=== PATIENT | male | born 1940 | race Caucasian/White ===

== ENCOUNTER 2016-12-01 08:10 | Emergency (ER) | payer MEDICARE, OTHER ==
[2016-12-01 08:21] VITALS: BP 134/67
[2016-12-01] MEDS ORDERED: Ipratropium 0.5MG/2.5ML NEB* 0.5 MG/2.5 ML NEB.SOLN INH ONE (08:49)
[2016-12-01] MEDS ORDERED: Albuterol 2.5 MG/3 ML NEB.SOL* (0.083%) INH ONE (08:49)
--- NOTE | 2016-12-01 08:49 | UC ---
Respiratory Complaint HPI - HPI Summary HPI Summary: 76 YO MALE WITH COUGH X 3 DAYS KEEPING HIM UP AT NIGHT FELT FEVERISH THIS AM NO CP OR SOB - History of Current Complaint Chief Complaint: UCRespiratory Stated Complaint: COUGH,CHEST CONGESTION Time Seen by Provider: 12/01/16 08:41 Hx Obtained From: Patient Onset/Duration: Gradual Onset, Lasting Days Timing: Constant Severity Initially: Mild Severity Currently: Moderate Pain Intensity: 3 Pain Scale Used: 0-10 Numeric Character: Cough: Nonproductive Aggravating Factors: Deep Breaths, Recumbent Position Alleviating Factors: Nothing - HAS USED INHALERS IN PAST Associated Signs And Symptoms: Positive: Fever - ? - Allergies/Home Medications Allergies/Adverse Reactions: Allergies Allergy/AdvReac Type Severity Reaction Status Date / Time No Known Allergies Allergy Verified 12/01/16 08:21 Home Medications: Home Medications Inhaler 1 - 2 puff INH SEE INSTRUCTIONS PRN 12/01/16 [History Confirmed ] PMH/Surg Hx/FS Hx/Imm Hx Cardiovascular History: Cardiac Disease, Hypertension Respiratory History: COPD - Surgical History Surgical History: Yes Surgery Procedure, Year, and Place: appy - Family History Known Family History: Positive: Hypertension - Social History Alcohol Use: Daily Alcohol Amount: 2 beers daily Substance Use Type: None Smoking Status (MU): Heavy Every Day Tobacco Smoker Type: Cigars Amount Used/How Often: 3-4 cigars Length of Time of Smoking/Using Tobacco: 40+ yrs Review of Systems Constitutional: Fever - [place] Skin: Negative Eyes: Negative ENT: Negative Respiratory: Cough Cardiovascular: Negative Gastrointestinal: Negative Genitourinary: Negative Motor: Negative Neurovascular: Negative Musculoskeletal: Negative Neurological: Negative Psychological: Negative All Other Systems Reviewed And Are Negative: Yes Physical Exam Triage Information Reviewed: Yes Appearance: Well-Appearing, No Pain Distress, Well-Nourished Vital Signs: Initial Vital Signs Temp 98.1 F 12/01/16 08:14 Pulse 64 12/01/16 08:14 Resp 24 12/01/16 08:14 BP 134/67 12/01/16 08:14 Pulse Ox 98 12/01/16 08:14 Vital Signs Reviewed: Yes Eyes: Positive: Conjunctiva Clear ENT: Positive: Hearing grossly normal. Negative: Nasal congestion, Nasal drainage, Trismus, Muffled/hoarse voice Neck: Positive: Supple, Nontender Respiratory: Positive: No respiratory distress, No accessory muscle use, Wheezing - WITH FORCED EXPIRATION Cardiovascular: Positive: RRR, No Murmur Musculoskeletal: Positive: ROM Intact, No Edema Neurological: Positive: Alert Psychological Exam: Normal Skin Exam: Normal UC Diagnostic Evaluation - Laboratory O2 Sat by Pulse Oximetry: 98 - NORMAL/NOT HYPOXIC - Radiology Xray Interpretation: No Acute Changes Radiology Interpretation Completed By: Radiologist Re-Evaluation - Re-Evaluation First Eval Re-Evaluation Time: 09:25 Change: Improved Comment: lungs clear....feels better Respiratory Course/Dx - Differential Dx/Diagnosis Provider Diagnoses: acute bronchitis Discharge - Discharge Plan Condition: Stable Disposition: HOME Prescriptions: Albuterol 2.5MG/3ML (0.083%)* [Ventolin 2.5 MG/3 ML NEB.NAVEEN*] 2.5 mg INH QID PRN #1 neb.naveen PRN Reason: Wheezing Amoxicillin PO (*) [Amoxicillin 875 MG (*)] 875 mg PO BID #14 tab Prednisone [Deltasone] 20 mg PO DAILY #5 tab Patient Education Materials: Acute Bronchitis (ED) Referrals: Ana Engel PA [Primary Care Provider] - 6 Days (if not better) Additional Instructions: use nebulizer 4x day for one week recheck for new or worsening symptoms
--- NOTE | 2016-12-01 09:02 | RAD ---
HISTORY: Cough COMPARISONS: December 27, 2013 VIEWS: 4: Frontal dual-energy and lateral views of the chest. FINDINGS: CARDIOMEDIASTINAL SILHOUETTE: The cardiomediastinal silhouette is normal. MARTIN: The martin are normal. PLEURA: The costophrenic angles are sharp. No pleural abnormalities are noted. LUNG PARENCHYMA: There is hyperinflation with flattening of the diaphragm and expansion of the AP diameter of the chest. ABDOMEN: The upper abdomen is clear. There is no subphrenic gas. BONES AND SOFT TISSUES: Degenerative changes are noted along the spine. OTHER: None. IMPRESSION: HYPERINFLATION, CONSISTENT WITH COPD. NO ACTIVE CARDIOPULMONARY DISEASE.
== END 2016-12-01 09:36 | disposition home or self-care (01) ==
LOC: UCCORT 08:10
DX: J20.9 Acute bronchitis, unspecified (principal); J44.9 Chronic obstructive pulmonary disease, unspecified; I10 Essential (primary) hypertension; F17.200 Nicotine dependence, unspecified, uncomplicated
CPT/HCPCS: 71020; 99212; G0463; J7644

== ENCOUNTER 2017-05-03 10:31 | Day surgery (SDC) | payer MEDICARE, OTHER ==
[~2017-05-03 10:31] MED LIST: Buffered Lidocaine 0.9% SYRIN* 5 ML/SYR SYRINGE INTRADERM ONE; Dexamethasone IV* 4 MG/ML 1 ML (4 MG) IV SLOW PU ONE; Famotidine IV* 10 MG/ML 2 ML (20 mg) IV ONE
[2017-05-03] MEDS ORDERED: ceFAZolin 2 GM PREMIX (*) 2 GM/50 ML BAG IVPB ONE (10:57)
[2017-05-03] MEDS ORDERED: Famotidine IV* 10 MG/ML 2 ML (20 mg) ONE (10:57)
[2017-05-03] MEDS ORDERED: Dexamethasone IV* 4 MG/ML 1 ML (4 MG) ONE (10:57)
[2017-05-03] MEDS ORDERED: Buffered Lidocaine 0.9% SYRIN* 5 ML/SYR SYRINGE ONE (10:57)
[2017-05-03] MEDS ORDERED: Levalbuterol 1.25MG/0.5ML NEB ONE (11:11)
[2017-05-03] MEDS ORDERED: Metoprolol Tartrate TAB* 100 MG TAB PO ONE (11:15)
[2017-05-03] MEDS ORDERED: Levalbuterol 1.25MG/0.5ML NEB INH ONE (12:00)
[2017-05-03] MEDS ORDERED: Bupivacaine 0.5% SDV PF* 10-30ML VIAL ONE ×3 (12:29→12:53)
[2017-05-03] MEDS ORDERED: Lidocaine 2% PF * 5 ML VIAL ONE (13:16)
[2017-05-03] MEDS ORDERED: Propofol* 10 MG/ML 20 ML BTL IV PUSH ONE (13:16)
[2017-05-03] MEDS ORDERED: Lidocaine 2% PF* 10 ML AMP ONE (13:33)
[2017-05-03 14:22] VITALS: BP 160/75
--- NOTE | 2017-05-04 13:34 | OP ---
DATE OF OPERATION: 05/03/17 - SDS DATE OF : 40 SURGEON: Benito Conner MD ANESTHESIOLOGIST: Speedy Pichardo MD ANESTHESIA: MAC PRE-OPERATIVE DIAGNOSES: 1. Necrotic toe. 2. Left forefoot with valgus flexion deformity. POST-OPERATIVE DIAGNOSES: 1. Necrotic toe. 2. Left forefoot with valgus flexion deformity. OPERATIVE PROCEDURE: PIP disarticulation of the 2nd toe. DESCRIPTION OF PROCEDURE: The patient was taken to the operating room where ankle Esmarch was performed. We placed 2% lidocaine around the metatarsal. Transverse elliptical incision was made at the PIP level, slightly distal, and we disarticulated, the PIP joint and then we are able to control hemostasis and closed dorsal to plantar with a couple of 3-0 Vicryl suture subcu and interrupted 3-0 nylon for the skin itself. We also percutaneously released the extensor tendon proximal to the MTP level through a dorsal 5-mm incision. This helped the contracture of the toe. The patient had generalized clawing noted. We then placed a compression dressing on the forefoot and an Manolo wrap. [id number]/[facility] #: [id number] [facility]
== END 2017-05-03 14:38 | disposition home or self-care (01) ==
LOC: OR 10:31
PROVIDERS: ATTEND Orthopaedic Surgery
DX: M86.672 Other chronic osteomyelitis, left ankle and foot (principal); M21.072 Valgus deformity, not elsewhere classified, left ankle; Z72.0 Tobacco use; I10 Essential (primary) hypertension; E78.5 Hyperlipidemia, unspecified; J44.9 Chronic obstructive pulmonary disease, unspecified
CPT/HCPCS: 88305; 88311; A9270-GY; J0690; J1100; J2001; J2704

== ENCOUNTER 2018-02-27 16:29 | Emergency (ER) | payer MEDICARE, OTHER ==
--- OUTSIDE RECORDS SUMMARY | 2018-02-27 16:42 | XMS REPORT ---
:1940 External Reference #:[id number] Author Organization [facility] 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 Ann Valdovinos MD Primary Care Physician Unavailable Payers Type Date Identification Numbers Payment Provider Subscriber Medicare Primary Policy Number: [id number] Medicare Benito Lu PayID: [id number] [address] [place] [address] Medicare Primary Effective: 2005 Policy Number: Medicare Benito Lu [id number] Expires: 2017 PayID: [id number] [address] [place] [address] Commercial Policy Number: [id number] for Life WPS Benito Lu PayID: [id number] [address] [place] [address] Problems Date Description Provider Status Onset: 02/08/2012 Coronary arteriosclerosis Delmar Quinn M.D., [facility] Active Note: AL 2003; holter WNL 2003 Onset: 02/08/2012 Mixed hyperlipidemia Delmar Quinn M.D., [facility] Active Note: June 2016 LDL 52 HDL 53 Onset: 02/08/2012 Aortic aneurysm Delmar Quinn M.D., [facility] Active Note: 3.9 cm Jan 2014; 4 cm (medium) June 2016 (next June 2017)- obtain an annual ultrasound study for aneurysms <4.5 cm and annual or more frequent intervals (eg, every six months) for larger aneurysms depending upon the characteristics of the aneurysm (eg, expansion rate). Onset: 02/22/2012 Benign essential hypertension Comfort Dumont, MARIBEL, Active [employer] Onset: 11/22/2014 Gilbert's syndrome Shar Olson MD Active Onset: 11/22/2014 Paroxysmal vertigo Shar Olson MD Active Onset: 11/22/2014 Tubular adenoma of colon Shar Olson MD Active Note: 2011; colo to cecum - 2014 Onset: 11/22/2014 Actinic keratosis Shar Olson MD Active Onset: 11/22/2014 Impotence Shar Olson MD Active Onset: 11/22/2014 Benign prostatic hyperplasia Shar Olson MD Active Onset: 11/22/2014 Rotator cuff syndrome Shar Olson MD Active Note: rupture; L shouder acromioplasty; R 2015 Onset: 11/22/2014 Bladder muscle dysfunction - overactive Shar Olson MD Active Onset: 11/22/2014 Gastroesophageal reflux disease Shar Olson MD Active Note: upper to D3 2013 Onset: 11/22/2014 Arthralgia of the lower leg Shar Olson MD Active Onset: 11/22/2014 Essential hypertension Shar Olson MD Active Onset: 11/22/2014 Benign neoplasm of colon Shar Olson MD Active Onset: 11/22/2014 Orthostatic hypotension Shar Olson MD Active Onset: 06/20/2015 Adult health examination Ana Engel PA-C Active Note: Next Td June 2016 eGFR 57 Cr 1.3 Onset: 08/13/2015 Dupuytren's contracture Ana Engel PA-C Active Note: R 4th digit Onset: 07/02/2016 Simple renal cyst Ana Engel PA-C Active Note: B/L US 2016 Onset: 08/05/2016 Chronic obstructive lung disease Ana Engel PA-C Active Note: FEV/FEV .June Onset: 05/19/2017 Tobacco user Ann Valdovinos MD Active Onset: 05/19/2017 Hypermature cataract Ann Valdovinos MD Active Onset: 05/19/2017 Immunization Ann Valdovinos MD Active Onset: 08/09/2017 Preoperative cardiovascular Delmar Quinn Active examination MDilcia, [facility] Onset: 08/09/2017 Electrocardiogram abnormal Delmar Quinn Active Ida, [facility] Onset: 08/09/2017 Hyperlipidemia Delmar Quinn Active M.D., [facility] Family History Date Family Member(s) Problem(s) Comments Father CAD : (age 62 Years) Father due to [place] Onset: (age 70 Years) First Brother Colon Cancer Second Brother Prostate Cancer Third Brother Prostate Cancer Social History Type Date Description Comments Marital Status Lives With Home Environment Lives With spouse Diet Patient follows no dietary restrictions 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 Cigarette Use Pack Years - 25 Cigars Current Cigar Smoker 6 Daily ETOH Use Consumes 4 beers per day Smoking Patient is a current smoker, smokes every 6 cigars a day day Recreational Drug Use Denies Drug Use Daily Caffeine Consumes on average 2 cups of regular coffee per day Allergies, Adverse Reactions, Alerts Date Description Reaction Status Severity Comments 05/19/2017 NKDA active 02/03/2012 NKDA inactive 11/22/2014 Vesicare inactive 11/22/2014 NKDA inactive Medications Medication Date Status Form Strength Qnty SIG Indications Ordering Provider Amlodipine 05/19/ Active Tablets 5mg 90tab 1 by mouth I10 Aruna, Besylate 2018 s every day MD Ann Metoprolol 08/05/ Active Tablets ER 100mg 90tab 1 By Mouth I10 Aruna, Succinate ER 2016 24HR s Every Day MD Ann Micardis 10/08/ Active Tablets 80mg 90tab 1 tab by I10 Aruna, 2016 s mouth every MD Ann day Lipitor / Active Tablets 80mg 90tab 1 by mouth Gagen, 0000 s every night Adalgisa iyer MS, [employer], CNM Aspirin Ec / Active Tablets DR 81mg 60tab 1 po qd Unknown 0000 s Garlic / Active 500mg 1 daily Unknown 0000 Spiriva 08/05/ Hx Aerosol 2.5mcg/Ac 12gm inhale 2 J44.9 Wasserman, Respimat 2017 t puffs (5 Zhao, mcg) by Ida mouth daily Metoprolol 06/23/ Hx Tablets ER 50mg 90tab 1 by mouth I10 Wasserman, Succinate ER 2017 - 24HR s every day Zhao, 08/05/ M.D. 2017 Proair HFA 06/23/ Hx Aerosol 108(90Bas 3unit 2 R06.00 Lux, 2017 e) s inhalations Zhao, mcg/Act every 4 M.D. hours as needed Ibuprofen 08/19/ Hx Capsules 200mg 2 po qam prn Gómez 2016 - eTjas Moreno, 2015 Acetaminophen 08/19/ Hx Tablets 500mg 360ta 2 by mouth Gómez, Extra Strength 2015 bs three times Tejas Moreno, a day DO Metoprolol 08/19/ Hx Tablets 25mg 180ta 1 by mouth Gómez Tartrate 2015 - bs twice a day Tejas Moreno, 2016 Telmisartan 08/19/ Hx Tablets 40mg 30tab 1 by mouth I10 Gómez, 2015 - s every day Tejas Moreno, 2015 Golytely 01/04/ Hx Solution 227.1gm 1bott drink 1 cup Wesley 2014 - Rec le every 10'; Shar, 06/19/ drink half 2015 of jug the evening before the procedure, the other half the morning of the procedure Celecoxib 11/22/ Hx Capsules 200mg 30cap PO daily 719.46 Wesley 2014 - s Shar, 06/19/ MD 2016 Acetaminophen 11/22/ Hx Tablets 500mg 180ta 1 g PO Q 6 h 719.46 Wesley, Extra Strength 2014 - bs prn pain, Shar, 06/19/ MDD 3 g 2015 Midodrine HCL 02/07/ Hx Tablets 10mg 60tab 1 by mouth 780.4 Cheyenne 2011 - s twice a day , Delmar 02/21/ MIda Modi, 2011 FACC Vesicare / Hx Tablets 5mg 30tab 1 po qd Unknown - s 2014 Diltiazem CD / Hx Caps ER 180mg 90cap 1 po qd Unknown 0000 - 24HR s 2011 Meclizine HCL / Hx Tablets 25mg 90tab 1 po qid prn Unknown 0000 - s 2015 Calcium / Hx Chewtabs 500mg as needed Unknown Carbonate 0000 - Antacid 2015 Metoprolol / Hx Tablets 50mg 180ta 1 by mouth Vatra, Tartrate 0000 - bs twice a day Shar, 2015 Polyethylene / Hx Packet [id number] take one Unknown Glycol 3350 0000 - packet by 11/21/ mouth twice 2015 a day as needed Prednisone / Hx Tablets 20mg 1 by mouth Unknown 0000 - every day 2015 Medications Administered in Office Medication Date Status Form Strength Qnty SIG Indications Ordering Provider Administration 12/28/ Administered Injection Wesley, Of Flu 2007 MD Shar Administration 02/18/ Administered Injection Wesley, Of Flu 2006 MD Shar Immunizations CPT Code Status Date Vaccine Lot # [id number] Given 01/19/2018 Influenza High Dose [id number] 40727 Given 05/19/2017 Influenza High Dose [id number] 27908 Given 03/14/2017 Influenza Virus Vaccine Intranasal 23564 Given 01/31/2016 Influenza Virus Vaccine Split Virus Use For [id number] Individual 3Yr Older 17924 Given 10/09/2015 Td Preservative Free For Use In Individuals 7 Yrs [id number] Or Older 08273 Given 06/20/2015 Pneumococcal Conjugate Vaccine 13 Valent For [id number] Intramuscular Use 68766 Given 06/20/2015 Influenza High Dose [id number] 50356 Given 12/30/2012 flu vaccination 90641 Given 07/01/2012 Pneumovax Injection 40557 Given 12/29/2011 flu vaccination 90675 Given 01/30/2011 flu vaccination 58061 Given 12/29/2007 flu vaccination 85763 Given 02/18/2007 flu vaccination 35145 Given 09/17/2005 Tetnus Injection 02975 Given 04/19/2001 Pneumovax Injection 41214 Given 04/19/1995 Tetnus Injection Vital Signs Date Vital Result Comment 02/08/2018 BP Systolic Sitting Left Arm 120 mmHg BP Diastolic Sitting Left Arm 65 mmHg Heart Rate 52 /min Respiratory Rate 18 /min Height 73 inches 6'1" Weight 195.00 lb BMI (Body Mass Index) 25.7 kg/m2 BSA (Body Surface Area) 2.13 m2 Nallen body weight in kilograms 83 O2 % BldC Oximetry 99 % 01/19/2018 BP Systolic Sitting Right Arm 144 mmHg Quinn 110/69 BP Diastolic Sitting Right Arm 70 mmHg Quinn 110/69 Body Temperature 96.9 F Heart Rate 56 /min Respiratory Rate 2 /min Height 73 inches 6'1" Weight 191.00 lb BMI (Body Mass Index) 25.2 kg/m2 BSA (Body Surface Area) 2.11 m2 Nallen body weight in kilograms 83 O2 % BldC Oximetry 98 % 10/07/2017 BP Systolic Sitting Right Arm 126 mmHg BP Diastolic Sitting Right Arm 72 mmHg Heart Rate 54 /min Respiratory Rate 18 /min Height 73 inches 6'1" Weight 186.00 lb BMI (Body Mass Index) 24.5 kg/m2 BSA (Body Surface Area) 2.09 m2 Nallen body weight in kilograms 83 O2 % BldC Oximetry 97 % 08/31/2017 BP Systolic Sitting Right Arm 127 mmHg BP Diastolic Sitting Right Arm 74 mmHg Body Temperature 98.3 F Heart Rate 69 /min Respiratory Rate 20 /min Height 73 inches 6'1" Weight 190.00 lb BMI (Body Mass Index) 25.1 kg/m2 BSA (Body Surface Area) 2.11 m2 Nallen body weight in kilograms 83 O2 % BldC Oximetry 95 % 08/09/2017 BP Systolic Sitting Left Arm 110 mmHg BP Diastolic Sitting Left Arm 68 mmHg Heart Rate 82 /min Respiratory Rate 18 /min Height 73 inches 6'1" Weight 197.00 lb BMI (Body Mass Index) 26.0 kg/m2 BSA (Body Surface Area) 2.14 m2 Nallen body weight in kilograms 83 05/19/2017 BP Systolic Sitting Right Arm 175 mmHg Quinn 146/84 BP Diastolic Sitting Right Arm 80 mmHg Quinn 146/84 Body Temperature 96.5 F Heart Rate 52 /min Respiratory Rate 18 /min Height 73 inches 6'1" Weight 193.00 lb BMI (Body Mass Index) 25.5 kg/m2 BSA (Body Surface Area) 2.12 m2 Nallen body weight in kilograms 83 09/17/2016 BP Systolic Sitting Right Arm 120 mmHg BP Diastolic Sitting Right Arm 80 mmHg Height 73 inches 6'1" Weight 195.00 lb BMI (Body Mass Index) 25.7 kg/m2 BSA (Body Surface Area) 2.13 m2 Nallen body weight in kilograms 83 08/05/2016 BP Systolic 156 mmHg BP Diastolic 81 mmHg Heart Rate 52 /min Respiratory Rate 20 /min Height 73 inches 6'1" Weight 195.00 lb BMI (Body Mass Index) 25.7 kg/m2 BSA (Body Surface Area) 2.13 m2 O2 % BldC Oximetry 96 % 06/23/2016 BP Systolic 152 mmHg BP Diastolic 83 mmHg Heart Rate 60 /min Height 73 inches 6'1" Weight 201.00 lb BMI (Body Mass Index) 26.5 kg/m2 BSA (Body Surface Area) 2.16 m2 12/25/2015 BP Systolic 128 mmHg BP Diastolic 75 mmHg Heart Rate 54 /min Height 73 inches 6'1" Weight 193.00 lb BMI (Body Mass Index) 25.5 kg/m2 BSA (Body Surface Area) 2.12 m2 10/09/2015 BP Systolic 144 mmHg BP Diastolic 76 mmHg Heart Rate 71 /min Respiratory Rate 24 /min Height 73 inches 6'1" Weight 193.00 lb BMI (Body Mass Index) 25.5 kg/m2 BSA (Body Surface Area) 2.12 m2 08/20/2015 BP Systolic 162 mmHg BP Diastolic 77 mmHg Heart Rate 48 /min Height 73 inches 6'1" Weight 195.00 lb BMI (Body Mass Index) 25.7 kg/m2 BSA (Body Surface Area) 2.13 m2 06/20/2015 BP Systolic 147 mmHg BP Diastolic 76 mmHg Heart Rate 50 /min Height 73 inches 6'1" Weight 195.00 lb BMI (Body Mass Index) 25.7 kg/m2 BSA (Body Surface Area) 2.13 m2 11/22/2014 BP Systolic Sitting Left Arm 138 mmHg BP Diastolic Sitting Left Arm 76 mmHg Heart Rate 76 /min Respiratory Rate 20 /min Height 73 inches 6'1" Weight 197.00 lb BMI (Body Mass Index) 26.0 kg/m2 BSA (Body Surface Area) 2.14 m2 08/29/2012 BP Systolic Sitting Right Arm 166 mmHg BP Diastolic Sitting Right Arm 74 mmHg Heart Rate 52 /min Regular Respiratory Rate 16 /min Height 73 inches 6'1" Weight 205.00 lb BMI (Body Mass Index) 27.0 kg/m2 BSA (Body Surface Area) 2.17 m2 BP Systolic Recheck 132 mmHg BP Diastolic Recheck 70 mmHg 02/22/2012 BP Systolic Sitting Left Arm 144 mmHg BP Diastolic Sitting Left Arm 82 mmHg Heart Rate 64 /min Respiratory Rate 14 /min Height 73 inches 6'1" Weight 195.00 lb BMI (Body Mass Index) 25.7 kg/m2 02/08/2012 BP Systolic Sitting Right Arm 140 mmHg BP Diastolic Sitting Right Arm 86 mmHg Heart Rate 59 /min Respiratory Rate 16 /min Height 73 inches 6'1" Weight 198.00 lb BMI (Body Mass Index) 26.1 kg/m2 Results Test Date Test Result H/L Range Note Glycohemoglobin A1c 01/28/2018 Glycohemoglobin (A1c) 5.6 % 4.2-6.3 1, 2 eAG 114 mg/dL 1 Comprehensive Metabolic Panel 01/28/2018 Glucose 100 mg/dL 74-106 1 BUN 15 mg/dL 7-18 1 Creatinine 1.3 mg/dL 0.6-1.3 1 Glom Filtration Rate, Estimate 57 mL/min >60 1 If >60 mL/min >60 1, 3 BUN/Creat 11.5 ratio 1 Sodium 139 mmol/L 136-145 1 Potassium 4.5 mmol/L 3.5-5.1 1 Chloride 104 mmol/L 98-107 1 Carbon Dioxide 29 mmol/L 21-32 1 Anion Gap 6 mEq/L Low 8-16 1 Calcium 8.5 mg/dL 8.5-10.1 1 Total Protein 7.5 g/dL 6.4-8.2 1 Albumin 3.5 g/dL 3.4-5.0 1 Globulin 4.0 g/dL 1.9-4.3 1 Alb/Glob 0.9 ratio 1 Bilirubin,Total 1.6 mg/dL High 0.2-1.0 1 Sgot/Ast 22 U/L 15-37 1 SGPT/Alt 34 U/L 12-78 1 Alkaline Phosphatase 107 U/L 45-117 1 CBC W/Automated Diff 01/28/2018 White Blood Count 6.1 K/uL 3.4-10.5 1 Red Blood Count 4.58 M/uL 4.20-5.80 1 Hemoglobin 15.2 gm/dL 12.8-17.0 1 Hematocrit 45.8 % 38.0-48.0 1 Mean Cell Volume 100.0 fl High 80.0-96.0 1 Mean Corpuscular HGB 33.2 pg High 27.0-33.0 1 Mean Corpuscular HGB Conc 33.2 g/dL 31.7-36.0 1 Platelet Count 156 K/uL 155-360 1 Red Cell Distri Width SD 48.6 fl 36-51 1 Red Cell Distri Width %CV 13.5 % 11.6-15.8 1 Mean Platelet Volume 12.1 fL High 6.6-10.6 1 Neut% 53.1 % 33.0-73.0 1 Lymph % 29.3 % 20.0-42.0 1 Crisp % 12.9 % High 0.0-10.0 1 Eo% 4.4 % 0.0-6.6 1 Bas% 0.3 % 0.0-1.1 1 Neut# 3.22 K/uL 1.8-7.0 1 Lymph # 1.78 K/uL 1.0-4.0 1 Crisp # 0.78 K/uL 0.0-0.8 1 Eos # 0.27 K/uL 0.0-0.5 1 Baso # 0.02 K/uL 0.0-0.1 1 LDL Cholesterol Profile 01/28/2018 Cholesterol 93 mg/dL <200 1, 4 Triglycerides 64 mg/dL <150 1, 5 HDL Cholesterol 46 mg/dL >40 1, 6 LDL-Cholesterol 34 mg/dL < 100 1, 7 Laboratory test 01/28/2018 Vitamin D,25-Hydroxy 23.1 ng/mL Low 30.0-100.0 1, 8 finding Comprehensive 08/31/2017 Glucose 112 mg/dL High 74-106 9 Metabolic Panel BUN 18 mg/dL 7-18 9 Creatinine 1.3 mg/dL 0.6-1.3 9 Glom Filtration Rate, Estimate 57 mL/min >60 9 If >60 mL/min >60 9, 10 BUN/Creat 13.8 ratio 9 Sodium 138 mmol/L 136-145 9 Potassium 4.0 mmol/L 3.5-5.1 9 Chloride 105 mmol/L 98-107 9 Carbon Dioxide 25 mmol/L 21-32 9 Anion Gap 8 mEq/L 8-16 9 Calcium 8.7 mg/dL 8.5-10.1 9 Total Protein 7.7 g/dL 6.4-8.2 9 Albumin 3.3 g/dL Low 3.4-5.0 9 Globulin 4.4 g/dL High 1.9-4.3 9 Alb/Glob 0.8 ratio 9 Bilirubin,Total 1.9 mg/dL High 0.2-1.0 9 Sgot/Ast 32 U/L 15-37 9 SGPT/Alt 35 U/L 12-78 9 Alkaline Phosphatase 97 U/L 45-117 9 CBS W/Automated Diff 08/31/2017 White Blood Count 6.6 K/uL 3.4-10.5 9 Red Blood Count 4.46 M/uL 4.20-5.80 9 Hemoglobin 14.8 gm/dL 12.8-17.0 9 Hematocrit 43.8 % 38.0-48.0 9 Mean Cell Volume 98.2 fl High 80.0-96.0 9 Mean Corpuscular HGB 33.2 pg High 27.0-33.0 9 Mean Corpuscular HGB Conc 33.8 g/dL 31.7-36.0 9 Platelet Count 177 K/uL 155-360 9 Red Cell Distri Width SD 46.3 fl 36-51 9 Red Cell Distri Width %CV 13.1 % 11.6-15.8 9 Mean Platelet Volume 11.9 fL High 6.6-10.6 9 Neut% 70.2 % 33.0-73.0 9 Lymph % 16.6 % Low 20.0-42.0 9 Crisp % 10.0 % 0.0-10.0 9 Eo% 2.9 % 0.0-6.6 9 Bas% 0.3 % 0.0-1.1 9 Neut# 4.66 K/uL 1.8-7.0 9 Lymph # 1.10 K/uL 1.0-4.0 9 Crisp # 0.66 K/uL 0.0-0.8 9 Eos # 0.19 K/uL 0.0-0.5 9 Baso # 0.02 K/uL 0.0-0.1 9 LDL Cholesterol Profile 08/31/2017 Cholesterol 106 mg/dL <200 9, 11 Triglycerides 91 mg/dL <150 9, 12 HDL Cholesterol 42 mg/dL >40 9, 13 LDL-Cholesterol 46 mg/dL < 100 9, 14 Glycohemoglobin A1c 08/31/2017 Glycohemoglobin (A1c) 5.8 % 4.2-6.3 9, 15 eAG 120 mg/dL 9 Basic Metabolic Panel 08/27/2017 Anion Gap 9 mmol/L 7 - 16 BUN/Creatinine Ratio 12.5 Ratio 10.0 - 20.0 Calcium 8.4 mg/dL 8.4 - 10.2 Chloride 107 mmol/L 100 - 108 Co2 24 mmol/L 22 - 31 Creatinine 1.20 mg/dL 0.80 - 1.30 GFR MDRD Af Amer >60 >59 ml/min/1.73m2 GFR MDRD Non Af Amer 59 ml/min/1.73m2 Low >59 Glom Filt Rate, Est See Notes Glucose 116 mg/dL High 70 - 99 Potassium 4.5 mmol/L 3.6 - 5.2 Sodium 140 mmol/L 136 - 145 Urea nitrogen 15 mg/dL 7 - 24 CBC 08/27/2017 Hematocrit 40.0 % Low 41.0 - 53.0 Hemoglobin 13.9 g/dL 13.5 - 18.0 MCH 33.9 pg High 27.0 - 32.0 MCHC 34.8 g/dL 32.0 - 36.0 MCV 97.5 fL High 80.0 - 95.0 MPV 9.2 fL 7.1 - 10.7 Platelets 159 10*3/uL 150 - 450 RBC 4.10 10*6/uL Low 4.60 - 6.10 RDW 13.6 % 10.5 - 14.5 WBC 10.0 10*3/uL 4.1 - 11.0 Blood type, confirmatory 08/26/2017 Blood bank comment See Notes Patient Abo/Rh A Positive Poct glucose 08/26/2017 Glucose, Poc 96 mg/dL 70 - 99 Protime-Inr 08/12/2017 Inr 0.94 1 Protime 9.8 s 9.2 - 11.9 Comprehensive metabolic panel 08/12/2017 Alb/Glob ratio 1.0 Ratio Albumin 3.6 g/dL 3.2 - 4.5 Alkaline Phosphatase 110 U/L 45 - 117 Alt 27 U/L 12 - 78 Anion Gap 9 mmol/L 7 - 16 Ast 17 U/L 11 - 39 BUN/Creatinine Ratio 13.9 Ratio 10.0 - 20.0 Bilirubin, Total 1.3 mg/dL High 0.0 - 1.0 Calcium 8.8 mg/dL 8.4 - 10.2 Chloride 103 mmol/L 100 - 108 Co2 26 mmol/L 22 - 31 Creatinine 1.01 mg/dL 0.80 - 1.30 GFR MDRD Af Amer >60 >59 ml/min/1.73m2 GFR MDRD Non Af Amer >60 >59 ml/min/1.73m2 Globulin 3.6 g/dL 2.7 - 4.3 Glom Filt Rate, Est See Notes Glucose 81 mg/dL 70 - 99 Potassium 4.3 mmol/L 3.6 - 5.2 Protein, Total 7.2 g/dL 6.4 - 8.2 Sodium 138 mmol/L 136 - 145 Urea nitrogen 14 mg/dL 7 - 24 CBC 08/12/2017 Hematocrit 44.3 % 41.0 - 53.0 Hemoglobin 15.4 g/dL 13.5 - 18.0 MCH 34.5 pg High 27.0 - 32.0 MCHC 34.9 g/dL 32.0 - 36.0 MCV 98.9 fL High 80.0 - 95.0 MPV 9.8 fL 7.1 - 10.7 Platelets 203 10*3/uL 150 - 450 RBC 4.47 10*6/uL Low 4.60 - 6.10 RDW 13.7 % 10.5 - 14.5 WBC 6.9 10*3/uL 4.1 - 11.0 Type and screen 08/12/2017 Antibody Screen Negative Patient Abo/Rh A Positive Specimen Expiration Date 08/27/2017 Testing site Performed At [address] [place] [id number] Ua Routine 05/06/2017 Ua Bilirubin Negative Ua Blood Negative Ua Clarity Clear Ua Color Yellow Ua Glucose Negative Ua Ketones Negative Ua Leuko Negative Ua Nitrite Negative Ua PH 5.5 1 5.0-7.5 Ua Protein Negative Ua Specific [place] <=1.005 1.003-1.030 Ua Urobilinogen 0.2 E.U./dL 0.0-1.0 Comprehensive Metabolic Panel 03/19/2017 Glucose 113 mg/dL High 74-106 16 BUN 15 mg/dL 7-18 16 Creatinine 1.1 mg/dL 0.6-1.3 16 Glom Filtration Rate, Estimate >60 mL/min >60 16 If >60 mL/min >60 16, 17 BUN/Creat 13.6 ratio 16 Sodium 138 mmol/L 136-145 16 Potassium 4.4 mmol/L 3.5-5.1 16 Chloride 105 mmol/L 98-107 16 Carbon Dioxide 28 mmol/L 21-32 16 Anion Gap 5 mEq/L Low 8-16 16 Calcium 9.0 mg/dL 8.5-10.1 16 Total Protein 7.0 g/dL 6.4-8.2 16 Albumin 3.5 g/dL 3.4-5.0 16 Globulin 3.5 g/dL 1.9-4.3 16 Alb/Glob 1.0 ratio 16 Bilirubin,Total 1.4 mg/dL High 0.2-1.0 16 Sgot/Ast 15 U/L 15-37 16 SGPT/Alt 27 U/L 12-78 16 Alkaline Phosphatase 90 U/L 45-117 16 Comprehensive Metabolic Panel 09/16/2016 Glucose 113 mg/dL High 74-106 18 BUN 17 mg/dL 7-18 18 Creatinine 1.2 mg/dL 0.6-1.3 18 Glom Filtration Rate, Estimate >60 mL/min >60 18 If >60 mL/min >60 18, 19 BUN/Creat 14.1 ratio 18 Sodium 139 mmol/L 136-145 18 Potassium 4.5 mmol/L 3.5-5.1 18 Chloride 105 mmol/L 98-107 18 Carbon Dioxide 30 mmol/L 21-32 18 Anion Gap 4 mEq/L Low 8-16 18 Calcium 9.0 mg/dL 8.5-10.1 18 Total Protein 7.3 g/dL 6.4-8.2 18 Albumin 3.8 g/dL 3.4-5.0 18 Globulin 3.5 g/dL 1.9-4.3 18 Alb/Glob 1.1 ratio 18 Bilirubin,Total 1.7 mg/dL High 0.2-1.0 18 Sgot/Ast 20 U/L 15-37 18 SGPT/Alt 39 U/L 12-78 18 Alkaline Phosphatase 90 U/L 45-117 18 Comprehensive Metabolic Panel 06/20/2016 Glucose 109 mg/dL High 74-106 20 BUN 17 mg/dL 7-18 20 Creatinine 1.3 mg/dL 0.6-1.3 20 Glom Filtration Rate, Estimate 57 mL/min >60 20 If >60 mL/min >60 20, 21 BUN/Creat 13.0 ratio 20 Sodium 141 mmol/L 136-145 20 Potassium 4.7 mmol/L 3.5-5.1 20 Chloride 107 mmol/L 98-107 20 Carbon Dioxide 27 mmol/L 21-32 20 Anion Gap 7 mEq/L Low 8-16 20 Calcium 8.5 mg/dL 8.5-10.1 20 Total Protein 7.0 g/dL 6.4-8.2 20 Albumin 3.7 g/dL 3.4-5.0 20 Globulin 3.3 g/dL 1.9-4.3 20 Alb/Glob 1.1 ratio 20 Bilirubin,Total 0.9 mg/dL 0.2-1.0 20 Sgot/Ast 18 U/L 15-37 20 SGPT/Alt 40 U/L 12-78 20 Alkaline Phosphatase 92 U/L 45-117 20 LDL Cholesterol Profile 06/20/2016 Cholesterol 118 mg/dL <200 20, 22 Triglycerides 64 mg/dL <150 20, 23 HDL Cholesterol 53 mg/dL >40 20, 24 LDL-Cholesterol 52 mg/dL < 100 20, 25 Comprehensive Metabolic Panel 12/25/2015 Glucose 100 mg/dL 74-106 26 BUN 17 mg/dL 7-18 26 Creatinine 1.1 mg/dL 0.6-1.3 26 Glom Filtration Rate, Estimate >60 mL/min >60 26 If >60 mL/min >60 26, 27 BUN/Creat 15.4 ratio 26 Sodium 137 mmol/L 136-145 26 Potassium 4.7 mmol/L 3.5-5.1 26 Chloride 105 mmol/L 98-107 26 Carbon Dioxide 28 mmol/L 21-32 26 Anion Gap 4 mEq/L Low 8-16 26 Calcium 8.5 mg/dL 8.5-10.1 26 Total Protein 6.8 g/dL 6.4-8.2 26 Albumin 3.7 g/dL 3.4-5.0 26 Globulin 3.1 g/dL 1.9-4.3 26 Alb/Glob 1.2 ratio 26 Bilirubin,Total 2.5 mg/dL High 0.2-1.0 26 Sgot/Ast 18 U/L 15-37 26 SGPT/Alt 35 U/L 12-78 26 Alkaline Phosphatase 82 U/L 45-117 26 Is Patient Fasting? <Blank> 26 CBS W/Automated Diff 12/25/2015 White Blood Count 6.1 K/uL 3.4-10.5 26 Red Blood Count 4.45 M/uL 4.20-5.80 26 Hemoglobin 15.3 gm/dL 12.8-17.0 26 Hematocrit 45.2 % 38.0-48.0 26 Mean Cell Volume 101.6 fl High 80.0-96.0 26 Mean Corpuscular HGB 34.4 pg High 27.0-33.0 26 Mean Corpuscular HGB Conc 33.8 g/dL 31.7-36.0 26 Platelet Count 150 K/uL 150-400 26 Red Cell Distri Width SD 48.2 fl 36-51 26 Red Cell Distri Width %CV 13.2 % 11.6-15.8 26 Mean Platelet Volume 12.9 fL High 6.6-10.6 26 Neut% 63.9 % 33.0-73.0 26 Lymph % 24.5 % 17.0-56.0 26 Crisp % 8.5 % 0.0-10.0 26 Eo% 2.8 % 0.0-5.0 26 Bas% 0.3 % 0.1-1.0 26 Neut# 3.91 K/uL 1.8-7.0 26 Lymph # 1.50 K/uL Low 1.8-7.0 26 Crisp # 0.52 K/uL 0.0-0.8 26 Eos # 0.17 K/uL 0.0-0.5 26 Baso # 0.02 K/uL Low 0.1-0.2 26 Protime 12/25/2015 Protime 13.4 seconds 12.0-14.4 26 Inr 1.0 0.9-1.1 26, 28 Laboratory test 12/25/2015 Act Partial Thrombo 28.7 seconds 23.4-35.0 26 , 29 finding Time Magnesium 12/25/2015 Magnesium 2.2 mg/dL 1.8-2.4 26 Is Patient Fasting? <Blank> 26 Comprehensive Metabolic Panel 12/24/2015 Glucose 109 mg/dL High 74-106 30 BUN 21 mg/dL High 7-18 30 Creatinine 1.2 mg/dL 0.6-1.3 30 Glom Filtration Rate, Estimate >60 mL/min >60 30 If >60 mL/min >60 30, 31 BUN/Creat 17.5 ratio 30 Sodium 140 mmol/L 136-145 30 Potassium 4.4 mmol/L 3.5-5.1 30 Chloride 108 mmol/L High 98-107 30 Carbon Dioxide 27 mmol/L 21-32 30 Anion Gap 5 mEq/L Low 8-16 30 Calcium 8.6 mg/dL 8.5-10.1 30 Total Protein 6.7 g/dL 6.4-8.2 30 Albumin 3.6 g/dL 3.4-5.0 30 Globulin 3.1 g/dL 1.9-4.3 30 Alb/Glob 1.2 ratio 30 Bilirubin,Total 1.7 mg/dL High 0.2-1.0 30 Sgot/Ast 19 U/L 15-37 30 SGPT/Alt 34 U/L 12-78 30 Alkaline Phosphatase 78 U/L 45-117 30 @[facility] Id: [id number] 30 @[facility] Re #: [id number] 30 Is Patient Fasting? Fasting 30 Comprehensive Metabolic Panel 10/08/2015 Glucose 108 mg/dL High 74-106 BUN 18 mg/dL 7-18 Creatinine 1.1 mg/dL 0.6-1.3 Glom Filtration Rate, Estimate >60 mL/min >60 If >60 mL/min >60 32 BUN/Creat 16.3 ratio Sodium 139 mmol/L 136-145 Potassium 4.1 mmol/L 3.5-5.1 Chloride 105 mmol/L 98-107 Carbon Dioxide 29 mmol/L 21-32 Anion Gap 5 mEq/L Low 8-16 Calcium 8.8 mg/dL 8.5-10.1 Total Protein 7.1 g/dL 6.4-8.2 Albumin 3.8 g/dL 3.4-5.0 Globulin 3.3 g/dL 1.9-4.3 Alb/Glob 1.2 ratio Bilirubin,Total 1.5 mg/dL High 0.2-1.0 Sgot/Ast 22 U/L 15-37 SGPT/Alt 47 U/L 12-78 Alkaline Phosphatase 76 U/L 45-117 Comprehensive Metabolic Panel 08/15/2015 Glucose 103 mg/dL 74-106 BUN 21 mg/dL High 7-18 Creatinine 1.3 mg/dL 0.6-1.3 Glom Filtration Rate, Estimate 57 mL/min >60 If >60 mL/min >60 33 BUN/Creat 16.1 ratio Sodium 139 mmol/L 136-145 Potassium 4.4 mmol/L 3.5-5.1 Chloride 105 mmol/L 98-107 Carbon Dioxide 27 mmol/L 21-32 Anion Gap 7 mEq/L Low 8-16 Calcium 8.6 mg/dL 8.5-10.1 Total Protein 6.8 g/dL 6.4-8.2 Albumin 3.6 g/dL 3.4-5.0 Globulin 3.2 g/dL 1.9-4.3 Alb/Glob 1.1 ratio Bilirubin,Total 1.5 mg/dL High 0.2-1.0 Sgot/Ast 17 U/L 15-37 SGPT/Alt 38 U/L 12-78 Alkaline Phosphatase 81 U/L 45-117 LDL Cholesterol Profile 06/13/2015 Cholesterol 98 mg/dL <200 34 Triglycerides 75 mg/dL <150 35 HDL Cholesterol 42 mg/dL >40 36 LDL-Cholesterol 41 mg/dL < 100 37 Comprehensive Metabolic Panel 06/13/2015 Glucose 104 mg/dL 74-106 BUN 14 mg/dL 7-18 Creatinine 1.0 mg/dL 0.6-1.3 Glom Filtration Rate, Estimate >60 mL/min >60 If >60 mL/min >60 38 BUN/Creat 14.0 ratio Sodium 136 mmol/L 136-145 Potassium 4.1 mmol/L 3.5-5.1 Chloride 105 mmol/L 98-107 Carbon Dioxide 26 mmol/L 21-32 Anion Gap 5 mEq/L Low 8-16 Calcium 8.5 mg/dL 8.5-10.1 Total Protein 6.9 g/dL 6.4-8.2 Albumin 3.5 g/dL 3.4-5.0 Globulin 3.4 g/dL 1.9-4.3 Alb/Glob 1.0 ratio Bilirubin,Total 1.4 mg/dL High 0.2-1.0 Sgot/Ast 19 U/L 15-37 SGPT/Alt 37 U/L 12-78 Alkaline Phosphatase 81 U/L 45-117 Laboratory test finding 01/07/2015 Polyp Colon And/Or Rectum See Note 39 1 E78.5 I10 F17.200 2 Elevated levels of HbA1c suggest the need for more aggressive treatment of glycemia. The [place] [employer] recommends that a primary goal of therapy should be a HbA1c of <7% and that physicians should re-evaluate the treatment regimen in patients with HbA1c values consistently >8%. 3 Note: Persistent reduction for 3 months or more in an eGFR <60 mL/min/1.73 m2 defines CKD. Patients with eGFR values >/=60 mL/min/1.73 m2 may also have CKD if evidence of persistent proteinuria is present. The original MDRD equation for estimated GFR is not valid for patients less than 18 years of age. Additional information may be found at www.[email or web address]. 4 Reference Guidelines*: Desirable: ........... < 200 mg/dL Borderline High: ..... 200-239 mg/dL High: ................ >=240 mg/dL * The National Cholesterol Education Program (NCEP) 5 Reference Guidelines*: Normal: ............. < 150 mg/dL Borderline High: .... 150-199 mg/dL High: ............... 200-499 mg/dL Very High: .......... > 500 mg/dL * Source: National Cholesterol Education Program (NCEP) 6 Reference Guidelines*: Low HDL: ..... < 40 mg/dL Normal: ..... 40-60 mg/dL Desirable: ... > 60 mg/dL *The National Cholesterol Education Program(NCEP) 7 Reference Guidelines*: Optimal:........... <100 mg/dL Near Optimal....... 100-129 mg/dL Borderline High.... 130-159 mg/dL High............... 160-189 mg/dL Very High.......... >=190 mg/dL * Source: National Cholesterol Education Program (NCEP) 8 Vitamin D deficiency has been defined by the [place] [employer] and an Endocrine Society practice guideline as a level of serum 25-OH vitamin D less than 20 ng/mL (1,2). The Endocrine Society went on to further define vitamin D insufficiency as a level between 21 and 29 ng/mL (2). 1. IOM ([place] [employer]). 2010. Dietary reference intakes for calcium and D. [place]: The National Academies Press. 2. Romeo EDOUARD, Ivon HARRIS, Sherie GARCIA, et al. Evaluation, treatment, and prevention of vitamin D deficiency: an Endocrine Society clinical practice guideline. JCEM. 2010; 96(7):1911-30. Performed at: RN - [facility] [address] [id number] Farm Adviser: Emelina Randle MD, Phone: [phone] I10 I71.9 E78.5 I25.10 R73.9 10 Note: Persistent reduction for 3 months or more in an eGFR <60 mL/min/1.73 m2 defines CKD. Patients with eGFR values >/=60 mL/min/1.73 m2 may also have CKD if evidence of persistent proteinuria is present. The original MDRD equation for estimated GFR is not valid for patients less than 18 years of age. Additional information may be found at www.[email or web address]. 11 Reference Guidelines*: Desirable: ........... < 200 mg/dL Borderline High: ..... 200-239 mg/dL High: ................ >=240 mg/dL * The National Cholesterol Education Program (NCEP) 12 Reference Guidelines*: Normal: ............. < 150 mg/dL Borderline High: .... 150-199 mg/dL High: ............... 200-499 mg/dL Very High: .......... > 500 mg/dL * Source: National Cholesterol Education Program (NCEP) 13 Reference Guidelines*: Low HDL: ..... < 40 mg/dL Normal: ..... 40-60 mg/dL Desirable: ... > 60 mg/dL *The National Cholesterol Education Program(NCEP) 14 Reference Guidelines*: Optimal:........... <100 mg/dL Near Optimal....... 100-129 mg/dL Borderline High.... 130-159 mg/dL High............... 160-189 mg/dL Very High.......... >=190 mg/dL * Source: National Cholesterol Education Program (NCEP) 15 Elevated levels of HbA1c suggest the need for more aggressive treatment of glycemia. The [place] [employer] recommends that a primary goal of therapy should be a HbA1c of <7% and that physicians should re-evaluate the treatment regimen in patients with HbA1c values consistently >8%. 16 J44.9 17 Note: Persistent reduction for 3 months or more in an eGFR <60 mL/min/1.73 m2 defines CKD. Patients with eGFR values >/=60 mL/min/1.73 m2 may also have CKD if evidence of persistent proteinuria is present. The original MDRD equation for estimated GFR is not valid for patients less than 18 years of age. Additional information may be found at www.[email or web address]. 18 R06.00 19 Note: Persistent reduction for 3 months or more in an eGFR <60 mL/min/1.73 m2 defines CKD. Patients with eGFR values >/=60 mL/min/1.73 m2 may also have CKD if evidence of persistent proteinuria is present. The original MDRD equation for estimated GFR is not valid for patients less than 18 years of age. Additional information may be found at www.[email or web address]. 20 I25.10 I95.1 21 Note: Persistent reduction for 3 months or more in an eGFR <60 mL/min/1.73 m2 defines CKD. Patients with eGFR values >/=60 mL/min/1.73 m2 may also have CKD if evidence of persistent proteinuria is present. The original MDRD equation for estimated GFR is not valid for patients less than 18 years of age. Additional information may be found at www.[email or web address]. 22 Reference Guidelines*: Desirable: ........... < 200 mg/dL Borderline High: ..... 200-239 mg/dL High: ................ >=240 mg/dL * The National Cholesterol Education Program (NCEP) 23 Reference Guidelines*: Normal: ............. < 150 mg/dL Borderline High: .... 150-199 mg/dL High: ............... 200-499 mg/dL Very High: .......... > 500 mg/dL * Source: National Cholesterol Education Program (NCEP) 24 Reference Guidelines*: Low HDL: ..... < 40 mg/dL Normal: ..... 40-60 mg/dL Desirable: ... > 60 mg/dL *The National Cholesterol Education Program(NCEP) 25 Reference Guidelines*: Optimal:........... <100 mg/dL Near Optimal....... 100-129 mg/dL Borderline High.... 130-159 mg/dL High............... 160-189 mg/dL Very High.......... >=190 mg/dL * Source: National Cholesterol Education Program (NCEP) 26 M75.101 I10 I25.10 27 Note: Persistent reduction for 3 months or more in an eGFR <60 mL/min/1.73 m2 defines CKD. Patients with eGFR values >/=60 mL/min/1.73 m2 may also have CKD if evidence of persistent proteinuria is present. The original MDRD equation for estimated GFR is not valid for patients less than 18 years of age. Additional information may be found at www.[email or web address]. 28 THERAPEUTIC INR RANGE: 2.0 - 3.0 DVT, Pulmonary embolus, prophylaxis against venous thrombosis or systemic embolization in high risk patients. 2.5 - 3.5 Mechanical heart valves 29 Is patient on heparin protocol? N Is patient on anticoagulants? None Is patient on heparin protocol? <Blank> Is patient on anticoagulants? <Blank> 30 I25.10 31 Note: Persistent reduction for 3 months or more in an eGFR <60 mL/min/1.73 m2 defines CKD. Patients with eGFR values >/=60 mL/min/1.73 m2 may also have CKD if evidence of persistent proteinuria is present. The original MDRD equation for estimated GFR is not valid for patients less than 18 years of age. Additional information may be found at www.[email or web address]. 32 Note: Persistent reduction for 3 months or more in an eGFR <60 mL/min/1.73 m2 defines CKD. Patients with eGFR values >/=60 mL/min/1.73 m2 may also have CKD if evidence of persistent proteinuria is present. The original MDRD equation for estimated GFR is not valid for patients less than 18 years of age. Additional information may be found at www.[email or web address]. 33 Note: Persistent reduction for 3 months or more in an eGFR <60 mL/min/1.73 m2 defines CKD. Patients with eGFR values >/=60 mL/min/1.73 m2 may also have CKD if evidence of persistent proteinuria is present. The original MDRD equation for estimated GFR is not valid for patients less than 18 years of age. Additional information may be found at www.[email or web address]. 34 Reference Guidelines*: Desirable: ........... < 200 mg/dL Borderline High: ..... 200-239 mg/dL High: ................ >=240 mg/dL * The National Cholesterol Education Program (NCEP) 35 Reference Guidelines*: Normal: ............. < 150 mg/dL Borderline High: .... 150-199 mg/dL High: ............... 200-499 mg/dL Very High: .......... > 500 mg/dL * Source: National Cholesterol Education Program (NCEP) 36 Reference Guidelines*: Low HDL: ..... < 40 mg/dL Normal: ..... 40-60 mg/dL Desirable: ... > 60 mg/dL *The National Cholesterol Education Program(NCEP) 37 Reference Guidelines*: Optimal:........... <100 mg/dL Near Optimal....... 100-129 mg/dL Borderline High.... 130-159 mg/dL High............... 160-189 mg/dL Very High.......... >=190 mg/dL * Source: National Cholesterol Education Program (NCEP) 38 Note: Persistent reduction for 3 months or more in an eGFR <60 mL/min/1.73 m2 defines CKD. Patients with eGFR values >/=60 mL/min/1.73 m2 may also have CKD if evidence of persistent proteinuria is present. The original MDRD equation for estimated GFR is not valid for patients less than 18 years of age. Additional information may be found at www.[email or web address]. 39 OPERATION/PROCEDURE Colonoscopy DIAGNOSIS: PART 1: "COLON, ASCENDING, BIOPSY": - HYPERPLASTIC POLYP. PART 2: "COLON, SIGMOID, BIOPSY": - HYPERPLASTIC POLYP. PART 3: "COLON, RECTUM, BIOPSY": - HYPERPLASTIC POLYP. /clf 1447 GROSS The specimen is received in formalin in three properly labeled containers labeled with the patient's name and accession number. Part one is designated, "ASCENDING COLON POLYP". The specimen consists of multiple pieces of meyers, soft rubbery tissue with an aggregate measurement of 0.4 x 0.2 x 0.2 cm. The specimen is submitted entirely, one cassette. Part two is designated, "SIGMOID POLYP". The specimen consists of multiple pieces of meyers, soft rubbery tissue with an aggregate dimension of 0.4 x 0.4 x 0.2 cm. The specimen is submitted entirely, one cassette. Part three is designated, "RECTAL POLYP". The specimen consists of multiple pieces of meyers, soft rubbery tissue with an aggregate dimension of 0.5 x 0.4 x 0.3 cm. The specimen is submitted entirely, one cassette. /clf PRE OPERATIVE DIAGNOSIS Colon cancer screening REVIEW CODE CODE: I Signed Electronically signed Tiffanie PÉRZE MD [id number] Procedures Date CPT Code Description Status Comment 08/19/2017 08057 Echocardiogram Complete Completed 08/09/2017 43778 EKG-Tracing And Report Completed 07/06/2016 01052 Bronchospasm Provocation Completed Evaluation Multi Spirometric Determinati 07/06/2016 84315 Spirometry Completed 12/25/2015 18556 EKG-Tracing And Report Completed 01/07/2015 92910 Colonoscopy With Biopsy Completed Forceps 01/07/2015 Colonoscopy Completed Document: 01/07/15 - Operative Report 08/07/2013 15569 Anesthesia, Upper GI Completed Endoscopic Surgery 02/08/2012 23682 EKG-Tracing And Report Completed 01/11/2012 Colonoscopy Completed Document: 01/11/12 - Colon & BX 01/04/2012 26155 Holter Monitor 24HR Completed Inter/Report 11/28/2007 68613 Colonoscopy With Polypectomy Completed 11/28/2007 Colonoscopy Completed Document: 11/28/07 - Colon & BX 03/20/2005 64319 Decompression subacromial Completed space w/partial acromioplasty w/wo corc 03/20/2005 44305 Tacos Procedure distal Completed claviculectomy including distal articula 10/09/200455647 Asp./Injection major joint Completed 08/19/2004 Asp./Injection major joint Completed 09/25/2002 Colonoscopy Completed Document: 09/25/02 - Colon & BX Encounters Type Date Location Provider CPT E/M Dx Office Visit 02/08/2018 10:00a Cardiology Office Comfort Dumont 18673 I25.10 Babar, MSN, [employer] E78.5 I10 I71.9 Office Visit 01/19/2018 11:00a [place] [address] E78.5 I71.9 I10 Z23 Office Visit 10/07/2017 1:30[place] [address] R93.3 Z86.010 Office Visit 08/31/2017 11:40a [place] [address] E78.5 I10 I71.9 J44.9 Office Visit 08/09/2017 11:40a Cardiology Office Delmar Quinn, 47501 Z01.810 Ida, [facility] R94.31 I25.10 F17.200 E78.5 Office Visit 05/19/2017 10:00a [place] [address] Z23 I10 I71.9 I25.10 H25.23 F17.200 Z23 Office Visit 09/17/2016 10:30a Primary Care Office Ana Engel, 63370 I10 PA-C J44.9 I71.9 I25.10 N40.0 C61 E78.5 F17.200 Office Visit 08/05/2016 10:00a Primary Care Office Ana Engel, 09471 J44.9 PA-C I10 I71.9 I25.10 N40.0 Office Visit 06/23/2016 10:00a Primary Care Office Ana Engel, 79948 I10 PA-C I25.10 N40.0 Office Visit 12/25/2015 10:00a Primary Care Office Ana Engel, 78617 M75.101 PA-C Z01.818 I10 I25.10 I71.9 N40.0 K63.5 I95.1 D48.5 Z23 Office Visit 10/09/2015 9:30a Primary Care Office Ana Engel, 12812 I10 PA-C I25.10 I71.9 N40.0 K63.5 I95.1 D48.5 Z23 Office Visit 08/20/2015 9:30a Primary Care Office Ana Engel Carly, 39525 I10 PA-C M25.569 I25.10 I71.9 N40.0 K63.5 I95.1 R00.1 D48.5 Office Visit 06/20/2015 9:30a Ana French PA-C 33342 I10 M25.569 I25.10 I71.9 N40.0 K63.5 I95.1 Z23 Office Visit 11/22/2014 9:00[place] [address] 719.46 401.9 414.01 441.9 600.00 211.3 458.0 Office Visit 08/29/2012 11:00a Cardiology Office Delmar Quinn, 60164 780.4 M.DRian, FAC 414.00 272.2 441.9 401.1 Office Visit 02/22/2012 11:20a Cardiology Office Comfort Dumont, 21340 780.4 MSN, [employer] 414.00 272.2 441.9 401.1 Office Visit 02/08/2012 8:30a Cardiology Office Delmar Quinn, 17726 780.4 M.DRian, FACC 414.00 272.2 441.9 Office Visit 10/04/2008 9:00[place] [address] 414.00 272.2 401.1 Office Visit 12/29/2007 1:00p [place] [address] 600.00 211.3 V04.81 Office Visit 09/30/2007 10:45a [place] [address] 414.00 401.1 Office Visit 03/25/2007 1:30p [place] [address] 788.41 414.00 Plan of Care Future Appointment(s):02/08/2019 8:20 am - Comfort Dumont, MSN, [employer] at Cardiology Livjft7307/20/2018 11:00 am - Ann Valdovinos MD at Primary Care Qksnkd5903/01/2018 9:25 am - Kwesi Engel DPM at Podiatry Dqgcdx4502/08/2018 - Comfort Dumont, MSN, FNPI25.10 Athscl heart disease of [place] coronary artery w/o ang pctrsComments:Continue with medical management. No changes.E78.5 Hyperlipidemia, unspecifiedComments:No changes.I10 Essential ( primary) hypertensionComments:No changes.I71.9 Aortic aneurysm of unspecified site, without ruptureComments:Monitor.AllFollow up:Follow up visit in one year.
--- OUTSIDE RECORDS SUMMARY | 2018-02-27 16:43 | XMS REPORT ---
:1940 External Reference #:[id number] Author Organization [facility] Address [address], [address] [place] [address] Phone [phone] Care Team Providers Name Role Phone Phan Azul MD Care Team Information French Binding Folder Unavailable Ann Valdovinos MD Primary Care Physician Unavailable Payers Type Date Identification Numbers Payment Provider Subscriber Medicare Primary Policy Number: [id number] Medicare Benito Lu PayID: [id number] [address] [place] [address] Medicare Primary Effective: 2005 Policy Number: Medicare Benito Lu [id number] Expires: 2017 PayID: [id number] [address] [place] [address] Commercial Policy Number: [id number] for Life WPS Benito Lu PayID: [id number] [address] [place] [address] Problems Date Description Provider Status Onset: 02/08/2012 Coronary arteriosclerosis Delmar Quinn M.D., [facility] Active Note: PR 2003; holter WNL 2003 Onset: 02/08/2012 Mixed hyperlipidemia Delmar Quinn M.D., [facility] Active Note: June 2016 LDL 52 HDL 53 Onset: 02/08/2012 Aortic aneurysm Delmar Quinn M.D., [facility] Active Note: 3.9 cm Jan 2014; 4 cm (medium) June 2016 (next June 2017)- obtain an annual ultrasound study for aneurysms <4.5 cm and annual or more frequent intervals (eg, every six months) for larger aneurysms depending upon the characteristics of the aneurysm (eg, expansion rate). Onset: 02/22/2012 Benign essential hypertension Comfort Dumont, MARIBEL, Active HOME ADMINISTRATOR Onset: 11/22/2014 Gilbert's syndrome Shar Olson MD [...] Preoperative cardiovascular Delmar Quinn Active examination MDilcia, [facility] Onset: 08/09/2017 Electrocardiogram abnormal Delmar Quinn Active Ida, [facility] Onset: 08/09/2017 Hyperlipidemia Delmar Quinn Active M.D., [facility] Family History Date Family Member(s) Problem(s) Comments Father CAD : (age 62 Years) Father due to [place] Onset: (age 70 Years) First Brother Colon [...] Tablets 5mg 90tab 1 by mouth I10 Aruan, Besylate 2018 s every day MD Ann Metoprolol 08/05/ Active Tablets ER 100mg 90tab 1 By Mouth I10 Aruna, Succinate ER 2016 24HR s Every Day MD Ann Micardis 10/08/ Active Tablets 80mg 90tab 1 tab by I10 Aruna, 2016 s mouth every MD Ann day Lipitor / Active Tablets 80mg 90tab 1 by mouth Gagen, 0000 s every night Adalgisa iyer MS, HOME ADMINISTRATOR-C, CNM Aspirin Ec / Active Tablets DR [...] 2 po qam prn Gómez 2016 - Tejas Moreno, 2015 Acetaminophen 08/19/ Hx Tablets 500mg [...] bs twice a day Shar, 2015 Polyethylene // Hx Packet [id number] take one Unknown Glycol 3350 0000 - packet by 11/21/ mouth twice 2015 a day as needed Prednisone / Hx Tablets 20mg 1 by mouth Unknown 0000 - every day 2015 Medications Administered in Office Medication Date Status Form Strength Qnty SIG Indications Ordering Provider Administration 12/28/ Administered Injection Galenra, Of Flu 2007 MD Shar Administration 02/18/ Administered Injection Wesley, Of Flu 2006 MD Shar Immunizations CPT Code Status Date Vaccine Lot # [id number] Given 01/19/2018 Influenza High Dose [id number] 25020 Given 05/19/2017 Influenza High Dose [id number] 21356 Given 03/14/2017 Influenza Virus Vaccine Intranasal 61130 Given 01/31/2016 Influenza Virus Vaccine Split Virus Use For [id number] Individual 3Yr Older 08954 Given 10/09/2015 Td Preservative Free For Use In Individuals 7 Yrs [id number] Or Older 26189 Given 06/20/2015 Pneumococcal Conjugate Vaccine 13 Valent For [id number] Intramuscular Use 68650 Given 06/20/2015 Influenza High Dose [id number] 52062 Given 12/30/2012 flu vaccination 83385 Given 07/01/2012 Pneumovax Injection 86443 Given 12/29/2011 flu vaccination 37120 Given 01/30/2011 flu vaccination 32159 Given 12/29/2007 flu vaccination 74449 Given 02/18/2007 flu vaccination 76201 Given 09/17/2005 Tetnus Injection 71312 Given 04/19/2001 Pneumovax Injection 09245 Given 04/19/1995 Tetnus Injection Vital Signs Date Vital Result Comment 01/19/2018 BP Systolic Sitting Right Arm 144 mmHg Quinn 110/69 BP Diastolic Sitting Right Arm 70 mmHg Quinn 110/69 Body Temperature 96.9 F Heart Rate 56 /min Respiratory Rate 2 /min Height 73 inches 6'1" Weight 191.00 lb BMI (Body Mass Index) 25.2 kg/m2 BSA (Body Surface Area) 2.11 m2 [place] body weight in kilograms 83 O2 % BldC Oximetry 98 % 10/07/2017 BP Systolic Sitting Right Arm 126 mmHg BP Diastolic Sitting Right Arm 72 mmHg Heart Rate 54 /min Respiratory Rate 18 /min Height 73 inches 6'1" Weight 186.00 lb BMI (Body Mass Index) 24.5 kg/m2 BSA (Body Surface Area) 2.09 m2 [place] body weight in kilograms 83 O2 % BldC Oximetry 97 % 08/31/2017 BP Systolic Sitting Right Arm 127 mmHg BP Diastolic Sitting Right Arm 74 mmHg Body Temperature 98.3 F Heart Rate 69 /min Respiratory Rate 20 /min Height 73 inches 6'1" Weight 190.00 lb BMI (Body Mass Index) 25.1 kg/m2 BSA (Body Surface Area) 2.11 m2 [place] body weight in kilograms 83 O2 % BldC Oximetry 95 % 08/09/2017 BP Systolic Sitting Left Arm 110 mmHg BP Diastolic Sitting Left Arm 68 mmHg Heart Rate 82 /min Respiratory Rate 18 /min Height 73 inches 6'1" Weight 197.00 lb BMI (Body Mass Index) 26.0 kg/m2 BSA (Body Surface Area) 2.14 m2 [place] body weight in kilograms 83 05/19/2017 BP Systolic Sitting Right Arm 175 mmHg Quinn 146/84 BP Diastolic Sitting Right Arm 80 mmHg Quinn 146/84 Body Temperature 96.5 F Heart Rate 52 /min Respiratory Rate 18 /min Height 73 inches 6'1" Weight 193.00 lb BMI (Body Mass Index) 25.5 kg/m2 BSA (Body Surface Area) 2.12 m2 [place] body weight in kilograms 83 09/17/2016 BP Systolic Sitting Right Arm 120 mmHg BP Diastolic Sitting Right Arm 80 mmHg Height 73 inches 6'1" Weight 195.00 lb BMI (Body Mass Index) 25.7 kg/m2 BSA (Body Surface Area) 2.13 m2 [place] body weight in kilograms 83 08/05/2016 BP [...] 1 Lymph % 29.3 % 20.0-42.0 1 [place]y % 12.9 % High 0.0-10.0 1 Eo% 4.4 % 0.0-6.6 1 Bas% 0.3 % 0.0-1.1 1 Neut# 3.22 K/uL 1.8-7.0 1 Lymph # 1.78 K/uL 1.0-4.0 1 Sibley # 0.78 K/uL 0.0-0.8 1 Eos # [...] Lymph % 16.6 % Low 20.0-42.0 9 S[place]y % 10.0 % 0.0-10.0 9 Eo% 2.9 % 0.0-6.6 9 Bas% 0.3 % 0.0-1.1 9 Neut# 4.66 K/uL 1.8-7.0 9 Lymph # 1.10 K/uL 1.0-4.0 9 Sibley # 0.66 K/uL 0.0-0.8 9 Eos # [...] Expiration Date 08/27/2017 Testing site Performed At [address] [place] [id number] 230 Ua Routine 05/06/2017 Ua Bilirubin Negative Ua Blood Negative Ua Clarity Clear Ua Color Yellow Ua Glucose Negative Ua Ketones Negative Ua Leuko Negative Ua Nitrite Negative Ua PH 5.5 1 5.0-7.5 Ua Protein Negative Ua Specific [place] <=1.005 1.003-1.030 Ua Urobilinogen 0.2 E.U./dL 0.0-1.0 [...] 26 Lymph % 24.5 % 17.0-56.0 26 Sibley % 8.5 % 0.0-10.0 26 Eo% 2.8 % 0.0-5.0 26 Bas% 0.3 % 0.1-1.0 26 Neut# 3.91 K/uL 1.8-7.0 26 Lymph # 1.50 K/uL Low 1.8-7.0 26 Sibley # 0.52 K/uL 0.0-0.8 26 Eos # [...] 30 Alkaline Phosphatase 78 U/L 45-117 30 @[facility] Id: [id number] 30 @[facility] Re #: [id number] 30 Is Patient Fasting? Fasting 30 Comprehensive [...] for more aggressive treatment of glycemia. The [place] Diabetes Association recommends that a primary goal [...] D deficiency has been defined by the [place] of Medicine and an Endocrine Society practice guideline as a level of serum 25-OH vitamin D less than 20 ng/mL (1,2). The Endocrine Society went on to further define vitamin D insufficiency as a level between 21 and 29 ng/mL (2). 1. IOM ([place] of Medicine). 2010. Dietary reference intakes for calcium and D. [place]: The National Academies Press. 2. Romeo MF, Ivon NC, Sherie GARCIA, et al. Evaluation, treatment, and prevention of vitamin D deficiency: an Endocrine Society clinical practice guideline. JCEM. 2011 Oct; 96(7):1911-30. Performed at: RN - [facility] [address] [id number] Data Mining Analyst: Emelina Randle MD, Phone: [phone] I10 I71.9 E78.5 I25.10 R73.9 10 [...] for more aggressive treatment of glycemia. The [place] Diabetes Association recommends that a primary goal [...] 3: "COLON, RECTUM, BIOPSY": - HYPERPLASTIC POLYP. CYNTHIA/leola 1447 GROSS The specimen is received in [...] The specimen is submitted entirely, one cassette. CC/clf PRE OPERATIVE DIAGNOSIS Colon cancer screening REVIEW CODE CODE: I Signed Electronically signed Tiffanie PÉREZ MD [id number] Procedures Date CPT Code Description Status Comment 08/19/2017 66260 Echocardiogram Complete Completed 08/09/2017 19397 EKG-Tracing And Report Completed 07/06/2016 10810 Bronchospasm Provocation Completed Evaluation Multi Spirometric Determinati 07/06/2016 28319 Spirometry Completed 12/25/2015 61547 EKG-Tracing And Report Completed 01/07/2015 16760 Colonoscopy With Biopsy Completed Forceps 01/07/2015 Colonoscopy Completed Document: 01/07/15 - Operative Report 08/07/2013 89354 Anesthesia, Upper GI Completed Endoscopic Surgery 02/08/2012 54959 EKG-Tracing And Report Completed 01/11/2012 Colonoscopy Completed Document: 01/11/12 - Colon & BX 01/04/2012 89634 Holter Monitor 24HR Completed Inter/Report 11/28/2007 36281 Colonoscopy With Polypectomy Completed 11/28/2007 Colonoscopy Completed Document: 11/28/07 - Colon & BX 03/20/2005 47052 Decompression subacromial Completed space w/partial acromioplasty w/wo corc 03/20/2005 57384 Tacos Procedure distal Completed claviculectomy including distal articula 10/09/200438383 Asp./Injection major joint Completed 08/19/2004 Asp./Injection major joint Completed 09/25/2002 Colonoscopy Completed Document: 09/25/02 - Colon & BX Encounters Type Date Location Provider CPT E/M Dx Office Visit 01/19/2018 11:00a [place] [address] E78.5 I71.9 I10 Z23 Office Visit 10/07/2017 1:30[place] [address] R93.3 Z86.010 Office Visit 08/31/2017 11:40a [place] [address] E78.5 I10 I71.9 J44.9 Office Visit 08/09/2017 11:40a Cardiology Office Delmar Quinn, 53699 Z01.810 Ida, [facility] R94.31 I25.10 F17.200 E78.5 Office Visit 05/19/2017 10:00a [place] [address] Z23 I10 I71.9 I25.10 H25.23 F17.200 Z23 Office Visit 09/17/2016 10:30a Primary Care Office Ana Engel, 11863 I10 PA-C J44.9 I71.9 I25.10 N40.0 C61 E78.5 F17.200 Office Visit 08/05/2016 10:00a Primary Care Office Ana Engel, 85817 J44.9 PA-C I10 I71.9 I25.10 N40.0 Office Visit 06/23/2016 10:00a Primary Care Office Ana Engel, 50184 I10 PA-C I25.10 N40.0 Office Visit 12/25/2015 10:00a Primary Care Office Ana Engel, 74661 M75.101 PA-C Z01.818 I10 I25.10 I71.9 N40.0 K63.5 I95.1 D48.5 Z23 Office Visit 10/09/2015 9:30a Primary Care Office ToroAna, 05425 I10 PA-C I25.10 I71.9 N40.0 K63.5 I95.1 D48.5 Z23 Office Visit 08/20/2015 9:30a Primary Care Office [place], 00021 I10 PA-C M25.569 I25.10 I71.9 N40.0 K63.5 I95.1 R00.1 D48.5 Office Visit 06/20/2015 9:30a Ana French PA-C 15427 I10 M25.569 I25.10 I71.9 N40.0 K63.5 I95.1 Z23 Office Visit 11/22/2014 9:00[place] [address] 719.46 401.9 414.01 441.9 600.00 211.3 458.0 Office Visit 08/29/2012 11:00a Cardiology Office Delmar Quinn, 34762 780.4 M.D., FAC 414.00 272.2 441.9 401.1 Office Visit 02/22/2012 11:20a Cardiology Office [place], 33533 780.4 MSN, HOME ADMINISTRATOR 414.00 272.2 441.9 401.1 Office Visit 02/08/2012 8:30a Cardiology Office Delmar Quinn, 86010 780.4 M.D., FACC 414.00 272.2 441.9 Office Visit 10/04/2008 9:00[place] [address] 414.00 272.2 401.1 Office Visit 12/29/2007 1:00p [place] [address] 600.00 211.3 V04.81 Office Visit 09/30/2007 10:45a [place] [address] 414.00 401.1 Office Visit 03/25/2007 1:30p [place] [address] 788.41 414.00 Plan of Care Future Appointment(s):07/20/2018 11:00 am - Ann Valdovinos MD at Primary Care Yzqbkh5703/01/2018 9:25 am - Kwesi Engel DPM at Podiatry Office
--- OUTSIDE RECORDS SUMMARY | 2018-02-27 16:43 | XMS REPORT | Continuity of Care Document ---
:1940 External Reference #:[id number] Author Name Indiana Villarreal Care Team Providers Name Role Phone Ann Valdovinos MD Care Team Information Control Equipment Electrician Unavailable Ann Valdovinos MD Primary Care Physician Unavailable Payers Type Date Identification Numbers Payment Provider Subscriber Effective: Policy Number: [id number] Medicare Benito Lu 2005 PayID: [id number] [address] [place] [address] Effective: 2010 Policy Number: [id number] For Life Benito Lu PayID: [id number] [address] [place] [address] Expires: 2017 Policy Number: [id number] Medicare Benito Lu PayID: [id number] [address] [place] [phone] Advance Directives Description No Information Available Problems Date Description Provider Status Onset: 12/22/2011 Benign prostatic hypertrophy without Shelley Valero M.D. Active outflow obstruction Onset: 12/22/2011 Benign prostatic hypertrophy with Shelley Valero M.D. 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 Active Onset: 09/20/2012 Incomplete emptying of bladder Shelley Valero M.D. Active Onset: Finding of frequency of urination Active Onset: Heart disease Active Family History Date Family Member(s) Problem(s) Comments First Daughter Ovarian Cancer First Brother Prostate Cancer Second Brother Prostate Cancer Second Brother Heart Disease Social History Type Date Description Comments Sex Unknown Marital Status Patient is Occupation Patient is retired Tobacco Use Reviewed: 02/03/18 Currently Smokes Cigars 3-5 Smoking Status Reviewed: 02/03/18 Currently Smokes Cigars 3-5 Tobacco Use Start: Unknown Never Smoked A Pipe ETOH Use Consumes 2 beers per day Allergies, Adverse Reactions, Alerts Description No Known Drug Allergies Medications Medication Date Status Form Strength Qnty SIG Indications Ordering Provider Aspirin 00// Active Tablets 81mg daily Unknown 0000 Proair HFA / Active Aerosol 108(90Base Toro, 0000 ) mcg/Act Ana WALLACE Toprol XL / Active Tablets ER 50mg Toro, 0000 24HR Ana WALLACE Micardis / Active Tablets 80mg Toro, 0000 Ana WALLACE Spiriva / Active Aerosol 2.5mcg/Act Toro, Respimat 0000 Ana WALLACE Atorvastatin / Active Tablets 80mg Toro, Calcium 0000 Ana WALLACE Vesicare 06/27/ Hx Tablets [facility]tabs [facility] Shelley Stewart, M.D. 2013 Levofloxacin 03/23/ Hx Tablets 500mg 10tabs 1 po for 2012 - days Shelley Stewart, M.D. 2012 Ativan 03/23/ Hx Tablets 1mg 2tabs 1mg tab on [facility], 2012 - call to Shelley Stewart, procedure M.D. 2016 and one during the procedure #2 Tamsulosin HCL 12/28/ Hx Capsules 0.4mg Unknown 2012 - 2017 Flomax 03/22/ Hx Capsules 0.4mg 90caps [facility], 06/[facility]/ M.D. 2013 Vesicare 12/19/ Hx Tablets 5mg 90tabs 1 po qd [facility] - Shelley Stewart, 05/04/ M.D. 2018 Lipitor / Hx Tablets 80mg 1 po hs Unknown - 2017 Cartia XT / Hx Caps ER 240mg Unknown 0000 - 24HR 2017 Medications Administered in Office Medication Date Status Form Strength Qnty SIG Indications Ordering Provider Gentamicin Up Administered Injection Marylu To 80MG Dose, 017 Shelley Stewart, 40MG/ML M.DRian Multi-Use Vial Immunizations Description No Information Available Vital Signs Date Vital Result Comment 02/03/2018 9:25am Height 72 inches 6'0" Weight 190.00 lb Weight 86.184 kg BMI (Body Mass Index) 25.8 kg/m2 BP Systolic 145 mmHg BP Diastolic 79 mmHg Heart Rate 66 /min 11/04/2017 10:26am Height 72 inches 6'0" Weight 190.00 lb Weight 86.184 kg BMI (Body Mass Index) 25.8 kg/m2 05/06/2017 9:57am Height 72 inches 6'0" Weight 194.00 lb Weight 87.998 kg BMI (Body Mass Index) 26.3 kg/m2 BP Systolic 170 mmHg BP Diastolic 88 mmHg Heart Rate 89 /min 04/28/2016 9:41am Height 72 inches 6'0" Weight 195.00 lb Weight 88.452 kg BMI (Body Mass Index) 26.4 kg/m2 BP Systolic 102 mmHg right wrist audio BP Diastolic 62 mmHg right wrist audio Heart Rate 56 /min Body Temperature 97.1 F 04/30/2015 10:08am Height 72 inches 6'0" Weight 195.00 lb Weight 88.452 kg BMI (Body Mass Index) 26.4 kg/m2 BP Systolic 130 mmHg right wrist audio BP Diastolic 81 mmHg right wrist audio Heart Rate 53 /min Body Temperature 97.1 F 06/27/2013 10:01am Height 72 inches 6'0" Weight 200.00 lb Weight 90.720 kg BMI (Body Mass Index) 27.1 kg/m2 BP Systolic 121 mmHg left wrist audio BP Diastolic 79 mmHg left wrist audio Heart Rate 55 /min Body Temperature 98.3 F 04/14/2013 2:00pm Post Void Residual 0 ml 12/22/2011 8:58am Height 72 inches 6'0" Weight 196.00 lb Weight 88.906 kg BMI (Body Mass Index) 26.6 kg/m2 BP Systolic 137 mmHg right BP Diastolic 92 mmHg right Heart Rate 57 /min Body Temperature 97.3 F 12/18/2010 8:43am BP Systolic 129 mmHg BP Diastolic 74 mmHg Heart Rate 61 /min Body Temperature 97.2 F Results Test Date Facility Test Result H/L Range Note 230 Ua Routine 02/03/2018 [facility] Ua Glucose Negative REF TO DR ADDRESS ON ORDER FOR (315)- - Ua Protein Negative Ua Nitrite Negative Ua Leuko Negative Ua Blood Negative Ua Color Yellow Ua Ketones Negative Ua Clarity Clear Ua Specific [place] <=1.005 1.003-1.030 Ua PH 5.5 5.0-7.5 Ua Bilirubin Negative Ua Urobilinogen 0.2 E.U./dL 0.0-1.0 Laboratory test 01/31/2018 [facility] Total Psa 4.14 ng/mL High 0.00-4.[address] [place] [address] [phone] 230 Ua Routine 11/04/2017 [facility] Ua Glucose Negative REF TO DR ADDRESS ON ORDER FOR (315)- - Ua Protein Negative Ua Nitrite Negative Ua Leuko Negative Ua Blood Negative Ua Color Yellow Ua Ketones Negative Ua Clarity Clear Ua Specific [place] 1.010 1.003-1.030 Ua PH 5.0 5.0-7.5 Ua Bilirubin Negative Ua Urobilinogen 0.2 E.U./dL 0.0-1.0 Laboratory test 10/29/2017 [facility] Total Psa 3.69 ng/mL 0.00-4.[address] [place] [address] [phone] 230 Ua Routine 05/06/2017 [facility] Ua Glucose Negative REF TO DR ADDRESS ON ORDER FOR (315)- - Ua Protein Negative Ua Nitrite Negative Ua Leuko Negative Ua Blood Negative Ua Color Yellow Ua Ketones Negative Ua Clarity Clear Ua Specific [place] <=1.005 1.003-1.030 Ua PH 5.5 5.0-7.5 Ua Bilirubin Negative Ua Urobilinogen 0.2 E.U./dL 0.0-1.0 Laboratory test 05/06/2017 [facility] Total Psa 2.85 ng/mL 0.00-4.[address] [place] [address] [phone] 230 Ua Routine 08/18/2016 [facility] Ua Glucose Negative REF TO DR ADDRESS ON ORDER FOR (315)- - Ua Protein Negative Ua Nitrite Negative Ua Leuko Negative Ua Blood Negative Ua Color yellow Ua Ketones Negative Ua Clarity clear Ua Specifici [place] 1.010 1.003-1.030 Ua PH 6.0 5.0-7.5 Ua Bilirubin Negative Ua Urobilinogen 0.2 E.U./dL 0.0-1.0 Prostate Biopsy 08/18/2016 [facility] Clinical History PSA: 3.23 ng/ml 1 [address] [place] [address] [phone] Left Base Benign prostatic <SEE NOTE> 2 Left Lateral Base Benign prostatic <SEE NOTE> 3 Left Mid Benign prostatic <SEE NOTE> 4 Left Lateral Mid ADENOCARCINOMA, <SEE NOTE> 5 Left Yale ADENOCARCINOMA, <SEE NOTE> 6 Left Lateral [place] Benign prostatic <SEE NOTE> 7 Right Base Benign prostatic <SEE NOTE> 8 Right Lateral Base Benign prostatic <SEE NOTE> 9 Right Mid Benign prostatic <SEE NOTE> 10 Right Lateral Mid Benign prostatic <SEE NOTE> 11 Right [place] Benign prostatic <SEE NOTE> 12 Right Lateral [place] Benign prostatic <SEE NOTE> 13 PDF Report SEE IMAGE Laboratory test 08/18/2016 Outside Facility PSA Pos Bx High finding (315)- - Laboratory test 08/06/2016 [facility] 14 finding POB FX# [phone] DESCRI> [phone] Laboratory test 08/04/2016 [facility] Rectal Swab POSITIVE - [address] [place] [address] Screen Fluor <[place] [address] NOTE> [phone] 230 Ua Routine 07/07/2016 [facility] Ua Glucose Negative REF TO DR ADDRESS ON ORDER FOR (315)- - Ua Protein Negative Ua Nitrite Negative Ua Leuko Negative Ua Blood Negative Ua Color yellow Ua Ketones Negative Ua Clarity clear Ua Specifici [place] 1.015 1.003-1.030 Ua PH 5.5 5.0-7.5 Ua Bilirubin Negative Ua Urobilinogen 0.2 E.U./dL 0.0-1.0 Laboratory test finding 05/06/2016 [facility] 230 4Kscore 18% High REF TO DR ADDRESS ON ORDER FOR (315)- - PSA Total 3.23 <4.00 Laboratory test 04/28/2016 [facility] Total Psa 3.08 ng/mL 0.00-4.[address] [place] [address] [phone] Testosterone 625.86 ng/dL 300.00-1000.00 Laboratory test 04/30/2015 [facility] Total Psa 2.40 ng/mL 0.00-4.[address] [place] [address] [phone] Testosterone 564.83 ng/dL 300.00-1000.00 230 Ua Routine 04/30/2015 [facility] Ua Glucose Negative REF TO DR ADDRESS ON ORDER FOR (315)- - Ua Protein Negative Ua Nitrite Negative Ua Leuko Negative Ua Blood Negative Ua Color yellow Ua Ketones Negative Ua Clarity clear Ua Specific [place] 1.010 1.003-1.030 Ua PH 6.0 5.0-7.5 Ua Bilirubin Negative Ua Urobilinogen 0.2 E.U./dL 0.0-1.0 #Ua Routine 05/01/2014 [facility] Ua Glucose Negative REF TO DR ADDRESS ON ORDER FOR (315)- - Ua Protein Negative Ua Nitrite Negative Ua Leuko Negative Ua Blood Negative Ua Color yellow Ua Ketones Negative Ua Clarity clear Ua Specific [place] <=1.005 1.003-1.030 Ua PH 5.5 5.0-7.5 Ua Bilirubin Negative Ua Urobilinogen 0.2 E.U./dL 0.0-1.0 Laboratory test 05/01/2014 [facility] Total Psa 2.17 ng/mL 0.00-4.[address] [facility] [place] [address] [phone] Testosterone 493.92 ng/dL 300.00-1000.00 #Ua Routine 10/24/2013 [facility] Ua Glucose Negative REF TO DR ADDRESS ON ORDER FOR (315)- - Ua Protein Negative Ua Nitrite Negative Ua Leuko Negative Ua Blood Negative Ua Color yellow Ua Ketones Negative Ua Clarity clear Ua Specific [place] >=1.030 1.003-1.030 Ua PH 6.0 5.0-7.5 Ua Bilirubin Negative Ua Urobilinogen 0.2 E.U./dL 0.0-1.0 #Ua Routine 06/27/2013 [facility] Ua Glucose Negative REF TO DR ADDRESS ON ORDER FOR (315)- - Ua Protein Negative Ua Nitrite Negative Ua Leuko Negative Ua Blood Negative Ua Color yellow Ua Ketones Negative Ua Clarity clear Ua Specific [place] 1.015 1.003-1.030 Ua PH 5.5 5.0-7.5 Ua Bilirubin Negative Ua Urobilinogen 0.2 E.U./dL 0.2-1 #Ua Routine 04/14/2013 [facility] Ua Glucose Negative REF TO DR ADDRESS ON ORDER FOR (315)- - Ua Protein Negative Ua Nitrite Negative Ua Leuko Negative Ua Blood 2+ Ua Color yellow Ua Ketones Negative Ua Clarity clear Ua Specific [place] 1.010 1.003-1.030 Ua PH 5.5 5.0-7.5 Ua Bilirubin Negative Ua Urobilinogen 0.2 E.U./dL 0.2-1 Laboratory test 12/28/2012 [facility] Total PSA 1.71 ng/mL 0.00-4.[address] [place] [address] [phone] Laboratory test 09/20/2012 [facility] Total PSA 1.55 ng/mL 0.00-4.[address] [place] [address] [phone] #Ua Routine 09/20/2012 [facility] Ua Glucose Negative REF TO DR ADDRESS ON ORDER FOR (315)- - Ua Protein Negative Ua Nitrite Negative Ua Leuko Negative Ua Blood Negative Ua Color Not Entered Ua Ketones Negative Ua Clarity Not Entered Ua Specific [place] 1.015 Ua PH 5.5 Ua Bilirubin Negative Ua Urobilinogen 0.2 E.U./dL Urinalysis 03/22/2012 N2N/CCD Import Urine Glucose 1.020 Urine Nitrites Not Entered Urine Ketones Neg Urine Specific [place] Neg Urine Leukocyte Esterase Neg #Ua Routine 03/22/2012 [facility] Ua Glucose Negative REF TO DR ADDRESS ON ORDER FOR (315)- - Ua Protein Negative Ua Nitrite Negative Ua Leuko Negative Ua Blood Negative Ua Color Not Entered Ua Ketones Negative Ua Clarity Not Entered Ua Specific [place] 1.020 Ua PH 5.5 Ua Bilirubin Negative Ua Urobilinogen 0.2 E.U./dL Urinalysis 12/18/2011 N2N/CCD Import Urine Nitrites Not Entered Urine Glucose Neg Urine Specific [place] Neg Urine Ketones Not Entered Urine Leukocyte Esterase 1.015 Laboratory test 12/18/2011 [facility] Total PSA 1.54 ng/mL 0.00-4.[address] [place] [address] [phone] Testosterone 499.67 ng/dL 199.00-1586.00 #Ua Routine 12/18/2011 [facility] Ua Glucose Negative REF TO DR ADDRESS ON ORDER FOR (315)- - Ua Protein Negative Ua Nitrite Negative Ua Leuko Negative Ua Blood Negative Ua Color Not Entered Ua Ketones Negative Ua Clarity Not Entered Ua Specific [place] 1.015 Ua PH 7.0 Ua Bilirubin Negative Ua Urobilinogen 0.2 E.U./dL Urine Specific [place] Not Entered Urine Nitrites Neg Urine Glucose 100 mg/dL Urine Ketones Neg Urine Leukocyte Esterase Neg #Ua Routine 12/18/2010 [facility] Ua Glucose Negative REF TO DR ADDRESS ON ORDER FOR (315)- - Ua Prot/Creat Normal Ua Protein Negative Ua Nitrite Negative Ua Leuko Negative Ua Blood Negative Ua Color Not Entered Ua Ketones Negative Ua Clarity Not Entered Ua Specific [place] 1.010 Ua PH 6.0 Ua Creatinine 100 mg/dL Laboratory test 12/11/2010 [facility] Total PSA 1.39 ng/mL 0.00-4.[address] [facility] [place] [address] [phone] Testosterone 464.21 ng/dL 225.00-972.00 Laboratory test 12/18/2009 Outside Facility PSA Total 2.20 0.07-4.0 finding (315)- - Laboratory test 12/18/2009 Outside Facility Testosterone Total 3.47 3.0- 10.6 finding (315)- - Laboratory test 11/28/2008 Outside Facility PSA Total 1.88 0.07-4.0 finding (315)- - Laboratory test 02/27/2008 Outside Facility Testosterone Total 4.50 3.0- 10.6 finding (315)- - Laboratory test 02/27/2008 Outside Facility PSA Total 1.55 0.07-4.0 finding (315)- - 1 Clinical stage: T1c hx of elevated PSA R97.20 2 Benign prostatic tissue. 3 Benign prostatic tissue. 4 Benign prostatic tissue. 5 ADENOCARCINOMA, CJ SCORE 3+3=6 (GRADE GROUP 1), Involving <5% (<0.5 mm in length) of one core. NOTE: The diagnosis is supported by results of immunohistochemical multiplex stains for racemase, high molecular weight cytokeratin, and p63. (Technical component of immunostains performed by HUGH SEXTON) 6 ADENOCARCINOMA, CJ SCORE 3+4=7 (GRADE GROUP 2), Involving 40% (5 mm in length) of one core. NOTE: The diagnosis is supported by results of immunohistochemical multiplex stains for racemase, high molecular weight cytokeratin, and p63. (Technical component of immunostains performed by HUGH SEXTON) 7 Benign prostatic tissue. 8 Benign prostatic tissue. 9 Benign prostatic tissue. 10 Benign prostatic tissue. 11 Benign prostatic tissue. 12 Benign prostatic tissue. 13 Benign prostatic tissue. NOTE: Grade Groups range from 1 (most favorable) to 5 (least favorable). Lacey PM, Tanvi PC, Eulalia AW, Derrell RUSSO. Prognostic Cj Grade Grouping: Data based on the modified Cj Scoring system. BJU Int 111:753-60, 2013. Derrell RUSSO, Saskia SUMNER, Curt RICHARDSON, et al. A contemporary prostate cancer grading system: A validated alternative to [place] Score. Eur Urol 69:428-35, 2016. 14 SPECIMEN DESCRIPTION RECTAL SPECIAL REQUESTS NONE CULTURE RESULTS ESCHERICHIA COLI REPORT STATUS FINAL 08/08/2016 ORGANISM ESCHERICHIA COLI METHOD HELLEN AMIKACIN <=2 SUSCEPTIBLE AMOXICILLIN/CLAVULANIC AC 8/4 SUSCEPTIBLE AMPICILLIN >=32 RESISTANT ISOLATES SUSCEPTIBLE TO AMPICILLIN ARE ALSO SUSCEPTIBLE TO AMOXICILLIN. CEFAZOLIN <=4 SUSCEPTIBLE CEFEPIME <=1 SUSCEPTIBLE CEFOXITIN 16 INTERMEDIATE CEFTAZIDIME <=1 SUSCEPTIBLE CEFTRIAXONE <=1 SUSCEPTIBLE CIPROFLOXACIN >=4 RESISTANT GENTAMICIN <=1 SUSCEPTIBLE LEVOFLOXACIN >=8 RESISTANT PIPERACILLIN/TAZOBACTAM <=4 SUSCEPTIBLE TETRACYCLINE 2 SUSCEPTIBLE TOBRAMYCIN <=1 SUSCEPTIBLE TRIMETH/SULFA <=1/19 SUSCEPTIBLE 15 POSITIVE - Fluoroquinolone Resistant Organism Identified. Sensitivities to follow. Procedures Date Code Description Status 08/18/2016 59238 Injection, Therapeutic, Prophylactic, Or Diagnostic Completed Injection 08/18/2016 73079 Ultrasonic Guidance For Needle Placement(Biopsy);Supervis Completed & Inter 08/18/2016 78358 Ultrasound,Prostate-Ultrasound Completed 08/18/2016 90577 Biopsy, Prostate, Needle Or Punch, Single Or Multiple, Any Completed Approa 10/24/2013 64662 Ultrasound, Pelvic Limited (Bladder US) Completed 04/14/2013 75185 Bladder Scan, Post Voiding Residual Urine Completed 03/30/2013 18902 Transurethral,Destruction Of Prostate Tissue By Microwave Completed Thermot 02/08/2012 40419 Urodynamics, Voiding Pressure Studies Intra Abdominal Completed Global 02/08/2012 91744 Urodynamics, Electromyography Studies EMG Of Anal Or Completed Urethral S 02/08/2012 25436 Urodynamics, Complex Uroflowmetry Eg Calibrated Electronic Completed Office 02/08/2012 12635 Complex Cystometrogram, With Voiding Pressure Studies Completed Global 12/22/2011 36262 Ultrasound, Pelvic Limited (Bladder US) Completed Encounters Type Date Location Provider Dx Diagnosis Office Visit 02/03/2018 Tamar Haley Malignant neoplasm 9:15a Urology Jose Maria Aburto of prostate Office Visit 11/04/2017 Tamar Haley Malignant neoplasm 10:30a Urology Jose Maria Aburto of prostate Office Visit 05/06/2017 Tamar Haley Malignant neoplasm 9:45a Urology Jose Maria Aburto of prostate I16.0 Hypertensive urgency Z80.42 Family history of malignant neoplasm of prostate Office Visit 09/03/2016 Shelley Andre C61 Malignant 9:40a Enedina Stewart M.D. neoplasm of prostate Office Visit 07/07/2016 Shelley Andre R97.20 Elevated 8:30a Enedina Stewart M.D. prostate specific antigen [PSA] Office Visit 04/28/2016 Shelley Andre N40.1 Benign prostatic 9:20a Enedina Stewart M.D. hyperplasia with lower urinary tract symp R97.20 Elevated prostate specific antigen [PSA] R35.1 Nocturia R39.14 Feeling of incomplete bladder emptying N52.01 Erectile dysfunction due to arterial insufficiency Office Visit 04/30/2015 Shelley Andre N40.1 Enlarged 10:00a Urologselin Stewart M.D. prostate with lower urinary tract symptoms R97.2 Elevated prostate specific antigen [PSA] R35.1 Nocturia R35.0 Frequency of micturition R39.14 Feeling of incomplete bladder emptying Office Visit 05/01/2014 Shelley Andre 600.01 Hypertrophy 9:30a Enedina Stewart M.D. Benign Of Prostate With Urinary Obstruction 788.4-1 Nocturia 788.41 Urinary Frequency Office Visit 10/24/2013 Shelley Andre 600.01 Hypertrophy 9:50a Urology Ida Stewart Benign Of Prostate With Urinary Obstruction 788.4-1 Nocturia 788.33-1 Urinary Urgency 788.41 Urinary Frequency 788.21 Retention Urine Incomplete Bladder Emptying Office Visit 06/27/2013 Duncan/Shelley Diaz 600.01 Hypertrophy 9:40a Urology Ida Stewart Benign Of Prostate With Urinary Obstruction 788.41 Urinary Frequency 788.33-1 Urinary Urgency 600.00 Hypertrophy Prostate W/O Urinary Obstruction & Other Luts Office Visit 04/14/2013 Duncan/Sebastian OsunaApril, 600.01 Hypertrophy 10:00a Urology CHARGE AUTHORIZER/PA Benign Of Prostate With Urinary Obstruction 788.4-1 Nocturia Office Visit 03/23/2013 Duncan/Sebastian OsunaApril, 600.01 Hypertrophy 10:30a Urology CHARGE AUTHORIZER/PA Benign Of Prostate With Urinary Obstruction Office Visit 09/20/2012 Duncan/Sebastian Valero, 600.01 Hypertrophy 8:20a Urology Celina Roberts Of M.D. Prostate With Urinary Obstruction 788.4-1 Nocturia 788.21 Retention Urine Incomplete Bladder Emptying 600.00 Hypertrophy Prostate W/O Urinary Obstruction & Other Luts Office Visit 03/22/2012 Duncan/Shelley Diaz 600.01 Hypertrophy 8:00a Urology Ida Stewart Benign Of Prostate With Urinary Obstruction 788.4-1 Nocturia 600.00 Hypertrophy Prostate W/O Urinary Obstruction & Other Luts Office Visit 12/22/2011 Duncan/Shelley Diaz 600.01 Hypertrophy 8:00a Urology Ida Stewart Benign Of Prostate With Urinary Obstruction 607.84 Impotence Organic Origin 788.4-1 Nocturia 600.00 Hypertrophy Prostate W/O Urinary Obstruction & Other Luts Office Visit 12/18/2010 Duncan/Shelley Diaz 600.00 Hypertrophy 8:30a Urology Ida Stewart Prostate W/O Urinary Obstruction & Other Luts 607.84 Impotence Organic Origin Plan of Treatment Future Appointment(s):02/28/2018 9:30 am - Cameron Moseley MD at [facility]/Sebastian Pnjppjp19/18/2018 - Gurpreet AburtoP.BenitaC61 Malignant neoplasm of prostateComments:We have reviewed review his pathology as well as his PSA history. He did have a 4K score 2017 with ascore of 18%. We're going to go ahead and send his tissue for Oncotype to get a better understandingof potential aggressiveness. Patient agreed with same. He'll call me in 2 weeks for results. Seen under the supervision of Dr. Moseley
[2018-02-27 17:09] VITALS: BP 118/58
--- NOTE | 2018-02-27 17:36 | UC ---
Respiratory Complaint HPI - HPI Summary HPI Summary: Pt presents with c/o of chest congestion, cough X 2 weeks. Pt has hx of COPD does not take medications as prescribed and is a current everyday smoker. - History of Current Complaint Chief Complaint: UCRespiratory Stated Complaint: COUGH/CONGESTION Time Seen by Provider: 02/27/18 17:29 Hx Obtained From: Patient Onset/Duration: Gradual Onset, Lasting Weeks, Still Present Timing: Intermittent Episodes Severity Initially: Mild Severity Currently: Moderate Pain Intensity: 0 Character: Cough: Nonproductive Aggravating Factors: Exertion, Deep Breaths, Recumbent Position Alleviating Factors: Nothing Associated Signs And Symptoms: Positive: Nasal Congestion - Risk Factors Pulmonary Embolism Risk Factors: Smoking Cardiac Risk Factors: Smoking Pseudomonas Risk Factors: Chronic Lung Disease Tuberculosis Risk Factors: Smoking - Allergies/Home Medications Allergies/Adverse Reactions: Allergies Allergy/AdvReac Type Severity Reaction Status Date / Time No Known Allergies Allergy Verified 02/27/18 17:04 Home Medications: Home Medications Albuterol HFA INHALER* [Ventolin HFA Inhaler*] 2 puff INH Q4H PRN 02/27/18 [ History Confirmed 02/27/18] PMH/Surg Hx/FS Hx/Imm Hx Previously Healthy: Yes Cardiovascular History: Cardiac Disease Respiratory History: COPD - Surgical History Surgical History: Yes Surgery Procedure, Year, and Place: appy. both shoulder done 01/2016, and 2010. abdominal aneurysm - Family History Known Family History: Positive: Hypertension - Social History Occupation: Retired Lives: With Family Alcohol Use: Daily Alcohol Amount: 2 beers daily Substance Use Type: None Smoking Status (MU): Heavy Every Day Tobacco Smoker Type: Cigarettes, Cigars Amount Used/How Often: 3-4 cigars smoking for 30 years cigars , no cigarettes Length of Time of Smoking/Using Tobacco: 40+ yrs Have You Smoked in the Last Year: Yes Review of Systems All Other Systems Reviewed And Are Negative: Yes Constitutional: Positive: Fatigue Skin: Positive: Negative Eyes: Positive: Negative ENT: Positive: Negative Respiratory: Positive: Cough Cardiovascular: Positive: Negative Gastrointestinal: Positive: Negative Genitourinary: Positive: Negative Motor: Positive: Negative Neurovascular: Positive: Negative Musculoskeletal: Positive: Negative Neurological: Positive: Negative Psychological: Positive: Negative Is Patient Immunocompromised?: No Physical Exam Triage Information Reviewed: Yes Appearance: Well-Appearing Vital Signs: Initial Vital Signs Temp 98.6 F 02/27/18 17:01 Pulse 90 02/27/18 17:01 Resp 18 02/27/18 17:01 BP 118/58 02/27/18 17:01 Pulse Ox 98 02/27/18 17:01 Vital Signs Reviewed: Yes Eye Exam: Normal ENT: Positive: Nasal congestion Dental Exam: Normal Neck exam: Normal Respiratory: Positive: Decreased breath sounds - bilateral bases Cardiovascular Exam: Normal Musculoskeletal Exam: Normal Neurological Exam: Normal Psychological Exam: Normal Skin Exam: Normal UC Diagnostic Evaluation - Laboratory O2 Sat by Pulse Oximetry: 98 Diagnostic Studies Comment: IMPRESSION: HYPERINFLATION, CONSISTENT WITH COPD. NO ACTIVE CARDIOPULMONARY DISEASE. - Radiology Radiology Interpretation Completed By: Radiologist Respiratory Course/Dx - Differential Dx/Diagnosis Differential Diagnosis/HQI/PQRI: Bronchitis, Other - pneumonia Provider Diagnoses: bronchitis Discharge - Sign-Out/Discharge Documenting (check all that apply): Patient Departure All imaging exams completed and their final reports reviewed: Yes - Discharge Plan Condition: Stable Disposition: HOME Prescriptions: DOXYcycline CAP(*) [DOXYcycline 100MG CAP(*)] 100 mg PO Q12H #20 cap predniSONE TAB* [Deltasone 20 MG TAB*] 20 mg PO DAILY #4 tab Patient Education Materials: Acute Bronchitis (ED) Referrals: Ann Valdovinos MD [Primary Care Provider] - 2 Days - Billing Disposition and Condition Condition: STABLE Disposition: Home
[2018-02-27] MEDS ORDERED: DOXYcycline CAP(*) 100 MG PO ONE (18:02)
== END 2018-02-27 18:13 | disposition home or self-care (01) ==
LOC: UCCORT 16:29
DX: J40 Bronchitis, not specified as acute or chronic (principal); F17.210 Nicotine dependence, cigarettes, uncomplicated
CPT/HCPCS: 71046; 99212; A9270-GY; G0463